=== PATIENT | male | born 1950 | race Caucasian/White ===

== ENCOUNTER 2023-03-23 08:00 | Outpatient (CLI) | payer OTHER, SELFPAY ==
--- NOTE | 2023-03-23 08:10 | US_ITS ---
WS: [id number] RIGHT UPPER QUADRANT ULTRASOUND HISTORY: RUQ ELEVATED LIVER ENZYMES COMPARISON: None available. Liver: 15.3 cm in length. Normal size liver and echogenicity. No bile duct dilatation or mass. Portal Vein: Normal hepatopetal flow with monophasic waveform. Gallbladder: Normally distended gallbladder with no stones or wall thickening. CBD: 0.4 cm Pancreas: Normal size and echogenicity. Right kidney: 11.3 cm in length. Normal size and echogenicity. No hydronephrosis or mass. Aorta and IVC: Unremarkable abdominal aorta and IVC. Small RIGHT pleural effusion is noted at the RIGHT lung base. IMPRESSION: 1. Negative RIGHT upper quadrant ultrasound. 2. Small RIGHT pleural effusion.
== END 2023-03-23 08:01 | disposition home or self-care (01) ==
PROVIDERS: PCP Nurse Practitioner; Visit Provider Nurse Practitioner
DX: R94.5 Abnormal results of liver function studies (principal); J90 Pleural effusion, not elsewhere classified
CPT/HCPCS: 76705

== ENCOUNTER → 2023-09-01 09:21 | Outpatient (BNVA) | payer OTHER, SELFPAY | PROVIDERS: PCP Nurse Practitioner; Visit Provider Podiatrist Foot & Ankle Surgery | DX: E11.621 Type 2 diabetes mellitus with foot ulcer; G62.9 Polyneuropathy, unspecified; L97.512 Non-pressure chronic ulcer of other part of right foot with fat layer exposed; E11.42 Type 2 diabetes mellitus with diabetic polyneuropathy | CPT/HCPCS: 99203 ==

== ENCOUNTER → 2023-09-07 09:03 | Outpatient (BNVA) | payer OTHER, SELFPAY | PROVIDERS: PCP Nurse Practitioner; Visit Provider Podiatrist Foot & Ankle Surgery | DX: L97.512 Non-pressure chronic ulcer of other part of right foot with fat layer exposed (principal); G62.9 Polyneuropathy, unspecified; E11.621 Type 2 diabetes mellitus with foot ulcer; L97.522 Non-pressure chronic ulcer of other part of left foot with fat layer exposed | CPT/HCPCS: 11042 ==

== ENCOUNTER 2023-09-15 11:05 | Outpatient (CLI) | payer OTHER, SELFPAY ==
--- NOTE | 2023-09-15 11:00 | MR_ITS ---
WS: [id number] EXAMINATION: MR foot RT wo/w con [id number] ORDER DATE: 09/15/2023 11:10 AM COMPARISON: None. HISTORY: Right foot wound CONTRAST: None. TECHNIQUE: Sagittal T1, sagittal STIR, coronal PD, coronal T2, axial T1, axial T2, and axial PD imagi ng with fat saturation technique. Post gadolinium imaging includes axial T1, coronal T1, and sagittal T1 with fat saturation technique. FINDINGS: Diffuse soft tissue edema dorsal midfoot at subcutaneous soft tissues. No evidence of drainable absce ss or fluid collection. Plantar soft tissue thickening overlying the first MTP joint in the area of i nterest. Associated subcutaneous soft tissue edema in this area. No evidence of underlying drainable abscess or fluid collection. Small joint effusion in the first MTP. No evidence of osteomyelitis. Metatarsals are otherwise otherwise normal in appearance. Small amount of fluid and edema about the f ifth proximal phalanx with a small amount of bone marrow edema and enhancement. Recommend correlation for trauma or fracture in this area. This may be inflammatory or reactive. IMPRESSION: 1. No evidence of drainable abscess or fluid collection. 2. No evidence of osteomyelitis. 3. No soft tissue thickening along the plantar fat pad at the first MTP. Small amount of fluid in th e first MTP joint. 4. Diffuse soft tissue edema worse in the dorsal midfoot soft tissues. 5. Small amount of fluid and edema about the fifth proximal phalanx with a small amount of bone john ow edema and enhancement. Recommend correlation for trauma or fracture in this area. 6. No other suspicious findings.
[2023-09-15] MEDS: gadobenate dimeglumine 20 mL vial IV (11:36)
== END 2023-09-15 11:06 | disposition home or self-care (01) ==
LOC: RAD 11:05
PROVIDERS: PCP Nurse Practitioner; Visit Provider Podiatrist Foot & Ankle Surgery
DX: L97.512 Non-pressure chronic ulcer of other part of right foot with fat layer exposed (principal); R93.6 Abnormal findings on diagnostic imaging of limbs; E11.52 Type 2 diabetes mellitus with diabetic peripheral angiopathy with gangrene; E11.621 Type 2 diabetes mellitus with foot ulcer; L97.521 Non-pressure chronic ulcer of other part of left foot limited to breakdown of skin; L97.511 Non-pressure chronic ulcer of other part of right foot limited to breakdown of skin
CPT/HCPCS: 73720; 97597; 99213; A9577

== ENCOUNTER → 2023-09-22 12:54 | Outpatient (BNVA) | payer OTHER, SELFPAY | PROVIDERS: PCP Nurse Practitioner; Visit Provider Thoracic Surgery (Cardiothoracic Vascular Surgery) | DX: Z09 Encounter for follow-up examination after completed treatment for conditions other than malignant neoplasm (principal); L84 Corns and callosities | CPT/HCPCS: 11056; A6212 ==

== ENCOUNTER → 2023-10-19 09:38 | Outpatient (BNVA) | payer OTHER, SELFPAY | PROVIDERS: PCP Nurse Practitioner; Referring Provider Nurse Practitioner; Visit Provider Internal Medicine | DX: E78.2 Mixed hyperlipidemia; E11.42 Type 2 diabetes mellitus with diabetic polyneuropathy; E11.319 Type 2 diabetes mellitus with unspecified diabetic retinopathy without macular edema; I73.9 Peripheral vascular disease, unspecified; Z79.4 Long term (current) use of insulin | CPT/HCPCS: 99204 ==

== ENCOUNTER → 2023-10-26 14:05 | Outpatient (BNVA) | payer OTHER, SELFPAY | PROVIDERS: PCP Nurse Practitioner; Visit Provider Thoracic Surgery (Cardiothoracic Vascular Surgery) | DX: S90.425A Blister (nonthermal), left lesser toe(s), initial encounter (principal); S90.424A Blister (nonthermal), right lesser toe(s), initial encounter; X58.XXXA Exposure to other specified factors, initial encounter | CPT/HCPCS: 11042; 87070; 87077; 87176; 87186; 87205 ==

== ENCOUNTER → 2023-11-02 14:05 | Outpatient (BNVA) | payer OTHER, SELFPAY | PROVIDERS: PCP Nurse Practitioner; Visit Provider Thoracic Surgery (Cardiothoracic Vascular Surgery) | DX: E11.52 Type 2 diabetes mellitus with diabetic peripheral angiopathy with gangrene (principal); E11.621 Type 2 diabetes mellitus with foot ulcer; L97.521 Non-pressure chronic ulcer of other part of left foot limited to breakdown of skin; L97.511 Non-pressure chronic ulcer of other part of right foot limited to breakdown of skin | CPT/HCPCS: 11042; 97597 ==

== ENCOUNTER 2023-12-23 15:33 | Emergency (ER) | payer OTHER, MEDICARE, SELFPAY ==
[2023-12-23 15:42] VITALS: BP 148/88; PULSE 103; RESP 16; TEMP 36.6; O2SAT 95; BMI 23.5
--- NOTE | 2023-12-23 16:11 | W.ED.WOUNDLC ---
HPI - Wound/Laceration General: Chief Complaint: Wound/Laceration Stated Complaint: foot pains Time Seen by Provider: 12/23/23 16:10 History of Present Illness: 73-year-old male patient was referred from [facility] for concerns of foot ulcer. Patient has a dry lesion to the ball of the right foot that has had some increased pain and discomfort. Patient denies any fever or chills. Patient does have chronic ulcers to the both feet. Patient had recent hip replacement for the right hip from a fall and fracture. Patient appears nontoxic. Patient denies any chest pain or shortness of breath. Patient is scheduled to see the wound clinic on Wednesday. Review of Systems General: Reports: 10 or more systems reviewed and unremarkable except in HPI and below Skin/Breast: Reports: changing lesions Physical Exam Const: COMMON NORMALS: alert HENMT: COMMON NORMALS: normocephalic HEAD & SCALP: normocephalic Neck/C-Spine: COMMON NORMALS: full ROM Resp: COMMON NORMALS: normal respiratory effort and clear to auscultation bilaterally AUSCULTATION: clear to auscultation bilaterally Cardio: COMMON NORMALS: regular rate RATE: regular rate GI: COMMON NORMALS: Soft to palpation and non-tender PALPATION: Yes Soft to palpation Back/Pelvis: COMMON NORMALS: thoracic and lumbar spine normal to inspection Extremity: NARRATIVE EXTREMITY EXAM: Strong pedal pulse to the right foot. Crusted callused lesion to the ball of the foot approximately 3-1/2 cm circular Neuro: SENSORIUM/ORIENTATION: Yes alert Skin: NARRATIVE SKIN EXAM: Tender lesion to the ball of right foot with his large callus area Course Vital Signs: Vital signs: Vital Signs Temperature 97.9 F 12/23/23 15:42 Pulse Rate 103 H 12/23/23 15:42 Respiratory Rate 16 12/23/23 16:31 Blood Pressure 116/86 12/23/23 16:31 Pulse Oximetry 94 12/23/23 16:31 Oxygen Delivery Me thod Room Air 12/23/23 16:31 MDM - Wound/Laceration Medical Decision Making 73-year-old male patient comes in with a wound to the ball of the right foot. On exam patient has good strong pedal pulses. No significant swelling to the foot. Patient does have a dry callused lesion to the ball of the foot with some tenderness ulcer appears to be limited to the skin.. Differential diagnosis includes diabetic foot ulcer, wound infection, osteomyelitis. Patient has had debridement of the callus and ulceration. Recommend follow-up with wound care. Patient has an appointment on Wednesday. Will start patient on Levaquin 500 mg daily. Patient was given a dose in the ER. Laboratory values were unremarkable except for alkaline phosphatase of 400 which is most likely secondary to patient's recent hip replacement surgery. X-ray showed no bony involvement. Patient and family both reported understanding. Lab Data 12/23/23 16:29 12/23/23 16: Laboratory Results WBC 6.72 10^3/uL (3.29-11.43) 12/23/23 16: RBC 3.80 10^6/uL (3.85-5.65) L 12/23/23 16: Hgb 12.90 g/dL (11.27-16.99) 12/23/23 16: Hct 39.4 % (37-53) 12/23/23 16: MCV 103.7 fl (82-101) H 12/23/23 16: MCH 33.9 pg (27-33) H 12/23/23 16: MCHC 32.7 g/dL (30-55) 12/23/23 16: RDW 15.8 % (12.1-15.1) H 12/23/23 16: Plt Count 195 10^3/cmm (157-399) 12/23/23 16: MPV 8.5 fL (7.4-10.4) 12/23/23 16: Neut % (Auto) 74.2 % 12/23/23 16: Lymph % (Auto) 13.8 % 12/23/23 16: Long % (Auto) 10.3 % 12/23/23 16: Eos % (Auto) 0.9 % 12/23/23 16: Baso % (Auto) 0.7 % 12/23/23: Neut # (Auto) 4.98 10^3/uL (1.8-7.7) 12/23/23 16: Lymph # (Auto) 0.9 10^3/uL (0.8-4.8) 12/23/23 16: Long # (Auto) 0.7 10^3/uL (0.2-0.9) 12/23/23 16:29 Eos # (Auto) 0.1 10^3/uL (0.0-0.8) 12/23/23 16: Baso # (Auto) 0.1 10^3/uL (0.0-0.1) 12/23/23 16:29 Nucleated RBC % (auto) 0 % 12/23/23 16: Nucleated RBCs # 0.0 /100WBC 12/23/23 16:29 Sodium 137 mmol/L (136-145) 12/23/23 16:29 Potassium 4.1 mmol/L (3.5-5.1) 12/23/23 16:29 Chloride 99 mmol/L (98-107) 12/23/23 16: Carbon Dioxide 28 mmol/L (22-29) 12/23/23 16: Anion Gap 14.1 (5-19) 12/23/23 16: BUN 20 mg/dL (8-23) 12/23/23 16:29 Creatinine 0.9 mg/dL (0.7-1.2) 12/23/23 16:29 GFR Calculation Not Reportable 12/23/23 16:29 Glucose 69 mg/dL (65-115) 12/23/23 16:29 Calculated Osmolality 285 mOsm/kg (285-295) 12/23/23 16: Lactic Acid 0.9 mmol/L (0.5-2.2) 12/23/23 16: Calcium 9.0 mg/dL (8.5-10.5) 12/23/23 16:29 Total Bilirubin 1.2 mg/dL (0.15-1.2) 12/23/23 16:29 AST 16 U/L (0-40) 12/23/23 16:29 ALT 17 U/L (0-41) 12/23/23 16:29 Alkaline Phosphatase 400 U/L (40-130) H 12/23/23 16:29 C-Reactive Protein 14.6 mg/L (0.0-4.9) H 12/23/23 16:29 Total Protein 7.3 g/dL (6.6-8.7) 12/23/23 16: Albumin 4.0 g/dL (3.5-5.2) 12/23/23 16:29 Globulin 3.3 g/dL (1.3-4.6) 12/23/23 16:29 All radiology interpretation(s) finalized by discharge Discharge Plan Discharge Patient Disposition: Home Clinical Impression: Diabetic foot ulcer Qualifiers: Diabetic foot ulcer location: midfoot Diabetes mellitus type: type 2 Laterality: right Non-pressure ulcer stage: limited to breakdown of skin Qualified Code(s): E11.621 - Type 2 diabetes mellitus with foot ulcer Condition: Stable Prescriptions: New levofloxacin 500 mg tablet 500 mg PO DAILY 7 Days Qty: 7 0RF No Action sulfamethoxazole-trimethoprim [Bactrim DS] 800-160 mg tablet 1 tab PO BID Qty: 14 0RF (DME) diabetic shoes with 3 inserts See Rx Instructions .Route .MEDSUPPLY Qty: 1 0RF Rx Instructions: As directed to the shoe guys (DME) FreeStyle Kalyani 2 [place] Misc See Rx Instructions .Route Qty: 1 0RF Rx Instructions: As directed (DME) FreeStyle Kalyani 2 Sensor Kit See Rx Instructions .Route Qty: 2 2RF Rx Instructions: As directed Discharge Orders: Discharge ED (Routine); Ordered 12/23/23 Ordered By: Thor Ennis Referrals: Preethi Jacques, STORE LEADER [Primary Care Provider] - Discharge Diet: Usual diet Discharge Activity: Increase activity as tolerated Patient Instructions: Foot Care for People with Diabetes (ED), Foot Ulcers in a Person with Diabetes (ED) Activity Restrictions/Additional Instructions: Take antibiotic as prescribed. Follow-up with wound care on Wednesday at appointment. Elevate foot is much as possible. Return to ER for new concerns or worsening symptoms such as high fever, nausea or vomiting. Coding Level of Care Code ED Pre Sales Network Engineer for Julia Barrow
--- NOTE | 2023-12-23 16:15 | XRR_ITS ---
PROCEDURE INFORMATION: Exam: XR Right Foot Exam date and time: 12/23/2023 4:19 PM Age: 73 years old Clinical indication: Condition or disease; Other: Foot ulcer; Patient HX: Diabetic ulcer on RT foot, pain on ball of foot TECHNIQUE: Imaging protocol: Radiologic exam of the right foot. Views: 3 or more views. COMPARISON: MR foot RT wo/w con [id number] 09/15/2023 11:16 AM FINDINGS: Bones/joints: Scattered osteoarthritis of the visualized osseous structures. Achilles tendon enthesophyte. Os peroneus. Soft tissues: Diffuse soft tissue reticulation, [id number]. Other findings: Plantar cutaneous defect appreciated on the lateral projection. XR/XR foot RT min 3V* [id number] IMPRESSION: 1. Plantar ulcer with diffuse soft tissue reticulation, which may be seen in diffuse cellulitis. Correlate clinically. 2. No aggressive osseous findings to suggest osteomyelitis.
[2023-12-23 16:31] VITALS: BP 116/86; RESP 16; O2SAT 94
[2023-12-23 16:43] LABS: Basophils # 0.1 10^3/uL (0.0-0.1); Basophils % 0.7 %; Eosinophils # 0.1 10^3/uL (0.0-0.8); Eosinophils % 0.9 %; Hematocrit 39.4 % (37-53); Lymphocytes # 0.9 10^3/uL (0.8-4.8); Lymphocytes % 13.8 %; Mean Corpuscular HGB Conc 32.7 g/dL (30-55); Mean Corpuscular Hemoglobin 33.9 pg (27-33); Mean Corpuscular Volume 103.7 fl (82-101); Mean Platelet Volume 8.5 fL (7.4-10.4); Monocytes # 0.7 10^3/uL (0.2-0.9); Monocytes % 10.3 %; Neutrophils # 4.98 10^3/uL (1.8-7.7); Neutrophils % 74.2 %; Nucleated Red Blood Cells % 0 %; Platelet Count 195 10^3/cmm (157-399); Red Cell Distribution Width 15.8 % (12.1-15.1); White Blood Count 6.72 10^3/uL (3.29-11.43)
[2023-12-23 17:05] LABS: Lactic Sepsis W/Reflex 0.9 mmol/L (0.5-2.2)
[2023-12-23 17:06] LABS: Alanine Aminotransferase 17 U/L (0-41); Alkaline Phosphatase 400 U/L (40-130); Anion Gap 14.1 (5-19); Aspartate Amino Transferase 16 U/L (0-40); Blood Urea Nitrogen 20 mg/dL (8-23); C Reactive Protein 14.6 mg/L (0.0-4.9); Carbon Dioxide 28 mmol/L (22-29); Chloride 99 mmol/L (98-107); Creatinine Clr Calc Pharmacy 88.7101; Globulin 3.3 g/dL (1.3-4.6); Glucose 69 mg/dL (65-115); Osmolality Calculated 285 mOsm/kg (285-295); Potassium 4.1 mmol/L (3.5-5.1); Sodium 137 mmol/L (136-145); Total Bilirubin 1.2 mg/dL (0.15-1.2); Total Protein 7.3 g/dL (6.6-8.7)
[2023-12-23] MEDS: levofloxacin-dextrose 5 % 500 MG/100 ML PREMIX 100 MG IV (17:33)
--- NOTE | 2023-12-23 17:50 | PC.NURSE ---
pt states he needs to leave, provider to bedside, pt aware that IV infusion would be best for him. 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
[2023-12-23] MEDS: levoFLOXacin 500 mg Tablet PO (17:55)
[2023-12-23 18:02] VITALS: BP 124/84; PULSE 97; RESP 16; O2SAT 95
== END 2023-12-23 18:03 | disposition home or self-care (01) ==
PROVIDERS: Emergency Provider Nurse Practitioner Family; PCP Nurse Practitioner
DX: E11.621 Type 2 diabetes mellitus with foot ulcer (principal)
CPT/HCPCS: 36415; 73630; 80053; 83605; 85025; 86140; 87040; 96365; 99284; J1956

== ENCOUNTER → 2023-12-27 08:17 | Outpatient (BNVA) | payer OTHER, SELFPAY | PROVIDERS: PCP Nurse Practitioner; Visit Provider Nurse Practitioner Family | DX: E11.621 Type 2 diabetes mellitus with foot ulcer (principal); L97.512 Non-pressure chronic ulcer of other part of right foot with fat layer exposed; E11.52 Type 2 diabetes mellitus with diabetic peripheral angiopathy with gangrene; L97.521 Non-pressure chronic ulcer of other part of left foot limited to breakdown of skin | CPT/HCPCS: 11042; 87070; 87176; 87205; 97597; A6210; A6252 ==

== ENCOUNTER → 2024-01-03 09:04 | Outpatient (BNVA) | payer OTHER, SELFPAY | PROVIDERS: PCP Nurse Practitioner; Visit Provider Nurse Practitioner Family | DX: Z09 Encounter for follow-up examination after completed treatment for conditions other than malignant neoplasm (principal); Z87.2 Personal history of diseases of the skin and subcutaneous tissue | CPT/HCPCS: 99212 ==

== ENCOUNTER → 2024-01-19 09:23 | Outpatient (BNVA) | payer OTHER, SELFPAY | PROVIDERS: PCP Nurse Practitioner; Visit Provider Nurse Practitioner | DX: S52.521A Torus fracture of lower end of right radius, initial encounter for closed fracture (principal); W19.XXXA Unspecified fall, initial encounter; S92.002A Unspecified fracture of left calcaneus, initial encounter for closed fracture; W11.XXXA Fall on and from ladder, initial encounter; E11.9 Type 2 diabetes mellitus without complications | CPT/HCPCS: 73130; 73630 ==

== ENCOUNTER 2024-02-08 10:00 | Outpatient (CLI) | payer OTHER, SELFPAY ==
--- NOTE | 2024-02-08 10:00 | USR_ITS ---
PROCEDURE INFORMATION: Exam: US Duplex Bilateral Lower Extremity Arteries Exam date and time: 02/08/2024 10:32 AM Age: 73 years old Clinical indication: Pain; Leg, lower; Left; Additional info: Non healing bilateral foot wounds TECHNIQUE: Imaging protocol: Real-time ultrasound scan of the arteries of the bilateral lower extremities with 2-D lafleur scale, color Doppler flow and spectral waveform analysis. Images documented and saved. COMPARISON: MR foot RT wo/w con [id number] 09/15/2023 11:16 AM FINDINGS: Right common femoral artery: No occlusion or significant stenosis. Normal waveform. Right superficial femoral artery: No occlusion or significant stenosis. Normal waveform. Right popliteal artery: No occlusion or significant stenosis. Normal waveform. Right calf/foot arteries: No occlusion or significant stenosis in the visualized arteries. Monophasic waveforms. Dorsalis pedis artery is patent. Left common femoral artery: No occlusion or significant stenosis. Normal waveform. Left superficial femoral artery: No occlusion or significant stenosis. Normal waveform. Left popliteal artery: No occlusion or significant stenosis. Normal waveform. Left calf/foot arteries: No occlusion or significant stenosis in the visualized arteries. Monophasic waveforms. Dorsalis pedis artery is patent. US/CV arterial duplex [facility] [id number] IMPRESSION: No stenosis or occlusion.
== END 2024-02-08 10:03 | disposition home or self-care (01) ==
PROVIDERS: PCP Nurse Practitioner; Visit Provider Nurse Practitioner Family
DX: E11.621 Type 2 diabetes mellitus with foot ulcer (principal); L97.411 Non-pressure chronic ulcer of right heel and midfoot limited to breakdown of skin; L97.512 Non-pressure chronic ulcer of other part of right foot with fat layer exposed
CPT/HCPCS: 93925

== ENCOUNTER → 2024-02-09 08:45 | Outpatient (BNVA) | payer OTHER, SELFPAY | PROVIDERS: PCP Nurse Practitioner; Visit Provider Internal Medicine | DX: E11.9 Type 2 diabetes mellitus without complications (principal); E78.2 Mixed hyperlipidemia; S52.521A Torus fracture of lower end of right radius, initial encounter for closed fracture; S92.002A Unspecified fracture of left calcaneus, initial encounter for closed fracture; W11.XXXA Fall on and from ladder, initial encounter; Z79.84 Long term (current) use of oral hypoglycemic drugs; Z79.4 Long term (current) use of insulin | CPT/HCPCS: 99214 ==

== ENCOUNTER → 2024-02-11 09:15 | Outpatient (BNVA) | payer OTHER, SELFPAY | PROVIDERS: PCP Nurse Practitioner; Visit Provider Podiatrist Foot & Ankle Surgery | DX: S92.002A Unspecified fracture of left calcaneus, initial encounter for closed fracture (principal); W11.XXXA Fall on and from ladder, initial encounter; E11.9 Type 2 diabetes mellitus without complications | CPT/HCPCS: 73610; 99213 ==

== ENCOUNTER → 2024-02-16 10:54 | Outpatient (BNVA) | payer OTHER, SELFPAY | PROVIDERS: PCP Nurse Practitioner; Visit Provider Nurse Practitioner | DX: S52.521D Torus fracture of lower end of right radius, subsequent encounter for fracture with routine healing (principal); X58.XXXD Exposure to other specified factors, subsequent encounter | CPT/HCPCS: 73110; 99024 ==

== ENCOUNTER → 2024-04-06 16:09 | Outpatient (BNVA) | payer OTHER, SELFPAY | PROVIDERS: PCP Nurse Practitioner; Visit Provider Podiatrist Foot & Ankle Surgery | DX: S92.002A Unspecified fracture of left calcaneus, initial encounter for closed fracture (principal); M79.672 Pain in left foot; E11.9 Type 2 diabetes mellitus without complications; W11.XXXA Fall on and from ladder, initial encounter | CPT/HCPCS: 73610; 99213 ==

== ENCOUNTER → 2024-04-07 09:52 | Outpatient (BNVA) | payer OTHER, SELFPAY | PROVIDERS: PCP Nurse Practitioner; Visit Provider Nurse Practitioner | DX: S52.512D Displaced fracture of left radial styloid process, subsequent encounter for closed fracture with routine healing (principal); X58.XXXD Exposure to other specified factors, subsequent encounter | CPT/HCPCS: 73110; 99213 ==

== ENCOUNTER 2024-05-02 08:20 | Outpatient (CLI) | payer OTHER, SELFPAY ==
--- NOTE | 2024-05-02 08:26 | US_ITS ---
WS: [id number] RIGHT UPPER QUADRANT ULTRASOUND HISTORY: ELEVATED LIVER ENZYMES COMPARISON: 03/23/2023 Liver: 16.8 cm in length. Normal size liver and echogenicity. No bile duct dilatation or mass. Portal Vein: Normal hepatopetal flow with monophasic waveform. Gallbladder: Normally distended gallbladder with no stones or wall thickening. CBD: 0.4 cm Pancreas: Pancreas appears atrophic and difficult to visualize in its entirety. Pancreatic duct is di lated to 4 mm. Right kidney: 10.9 cm in length. Normal size and echogenicity. No hydronephrosis or mass. Aorta and IVC: IVC appears prominent. Normal size aorta. Small RIGHT pleural effusion. No ascites. US/US abdomen limited [id number] IMPRESSION: 1. Negative gallbladder. 2. Dilated pancreatic duct to 4 mm. Otherwise the pancreas appears atrophied b ut limited evaluation. Recommend follow-up CT abdomen and pelvis with pancreati c mass protocol to exclude pancreatic mass. 3. Small RIGHT pleural effusion.
== END 2024-05-02 08:21 | disposition home or self-care (01) ==
LOC: RAD 08:20
PROVIDERS: PCP Nurse Practitioner; Visit Provider Nurse Practitioner
DX: K86.89 Other specified diseases of pancreas (principal); J90 Pleural effusion, not elsewhere classified
CPT/HCPCS: 76705

== ENCOUNTER → 2024-05-18 15:24 | Outpatient (BNVA) | payer OTHER, SELFPAY | PROVIDERS: PCP Nurse Practitioner; Visit Provider Podiatrist Foot & Ankle Surgery | DX: M79.672 Pain in left foot; E11.621 Type 2 diabetes mellitus with foot ulcer; L97.512 Non-pressure chronic ulcer of other part of right foot with fat layer exposed; S92.002D Unspecified fracture of left calcaneus, subsequent encounter for fracture with routine healing; X58.XXXD Exposure to other specified factors, subsequent encounter | CPT/HCPCS: 73610; 99213 ==

== ENCOUNTER 2024-06-20 07:57 | Outpatient (CLI) | payer OTHER, SELFPAY ==
--- NOTE | 2024-06-20 08:04 | CTR_ITS ---
PROCEDURE INFORMATION: Exam: CT Abdomen And Pelvis With Contrast Exam date and time: 06/20/2024 9:27 AM Age: 74 years old Clinical indication: Condition or disease; Pancreatic condition; Other: Atrophy; Patient HX: Follow up pancreas atrophied/pancreatic mass; Additional info: Pancreas appears atrophied/pancreatic mass TECHNIQUE: Imaging protocol: Computed tomography of the abdomen and pelvis with contrast. Radiation optimization: All CT scans at this facility use at least one of these dose optimization techniques: automated exposure control; mA and/or kV adjustment per patient size (includes targeted exams where dose is matched to clinical indication); or iterative reconstruction. Contrast material: OMNI 350; Contrast volume: 100 ml; Contrast route: INTRAVENOUS (IV); COMPARISON: abdomen limited [id number] 05/02/2024 8:35 AM RADIATION DOSE METRICS: Total DLP (mGy-cm): 897.83 FINDINGS: Pleural spaces: Moderate right-sided pleural effusion with overlying compressive atelectasis. Mild left basilar atelectasis. Liver: Heterogeneous mottled appearance of the liver . The liver capsule appears mildly nodular. Diffuse hypoattenuation of the liver. Mild periportal edema. Gallbladder and biliary ducts: The gallbladder is underdistended limiting evaluation otherwise unremarkable. Pancreas: Atrophic pancreas without discernible evidence of pancreatic lesion Spleen: Normal. No splenomegaly. Adrenal glands: Normal. No mass. Kidneys and ureters: Normal. No hydronephrosis. Stomach and bowel: Moderately increased colonic stool burden. Scattered fluid-filled loops of small bowel that are non pathologically dilated. Appendix: The appendix is partially air and contrast filled and unremarkable. Intraperitoneal space: Unremarkable. No free air. No significant fluid collection. Vasculature: The hepatic veins are not well opacified on this examination likely related to contrast phase timing. Lymph nodes: Unremarkable. No enlarged lymph nodes. Urinary bladder: Unremarkable as visualized. Reproductive: Unremarkable as visualized. Bones/joints: Moderate multilevel degenerative changes of the thoracolumbar spine. Soft tissues: Screw and bria fixation in the proximal right femoral head and neck. CT/CT abdomen pelvis w con* [id number] IMPRESSION: 1. Heterogeneous mottled appearance of the liver on venous phase imaging with non-opacification of the hepatic veins which is likely related to contrast phase timing. Differential diagnosis includes findings related to Budd-Chiari syndrome versus nonspecific perfusional changes of the liver. Further evaluation with MRI liver mass protocol can be obtained as clinically indicated. 2. There is a mildly nodular contour of the liver with diffuse hypoattenuation suggesting hepatic steatosis and/or diffuse hepatocellular disease such as cirrhosis or steatohepatitis. Recommend clinical and laboratory correlation. 3. Mild constipation. 4. Scattered fluid-filled loops of small bowel that are non pathologically dilated may represent nonspecific enteritis. 5. Moderate right-sided pleural effusion with overlying compressive atelectasis. 6. Nonspecific atrophic appearance of the pancreas without discernible pancreatic mass lesion.
[2024-06-20] MEDS: iohexol 350 mg/mL 500 mL Btl (per mL) PO (09:18)
[2024-06-20 09:28] LABS: Blood Urea Nitrogen 21 mg/dL (8-23)
[2024-06-20] MEDS: iohexol 350 mg/mL 500 mL Btl (per mL) IV (09:35)
== END 2024-06-20 07:58 | disposition home or self-care (01) ==
LOC: RAD 07:58
PROVIDERS: PCP Nurse Practitioner; Visit Provider Nurse Practitioner
DX: R93.2 Abnormal findings on diagnostic imaging of liver and biliary tract (principal); J90 Pleural effusion, not elsewhere classified; J98.11 Atelectasis; K86.89 Other specified diseases of pancreas; K59.00 Constipation, unspecified; M51.35 Other intervertebral disc degeneration, thoracolumbar region
CPT/HCPCS: 74177; 82565; 84520

== ENCOUNTER → 2024-06-22 14:31 | Outpatient (BNVA) | payer OTHER, SELFPAY | PROVIDERS: PCP Nurse Practitioner; Visit Provider Podiatrist Foot & Ankle Surgery | DX: S92.002A Unspecified fracture of left calcaneus, initial encounter for closed fracture; E11.9 Type 2 diabetes mellitus without complications; X58.XXXA Exposure to other specified factors, initial encounter | CPT/HCPCS: 99213 ==

== ENCOUNTER → 2024-08-03 13:43 | Outpatient (BNVA) | payer OTHER, SELFPAY | PROVIDERS: PCP Nurse Practitioner; Referring Provider Nurse Practitioner; Visit Provider Specialist | DX: R20.0 Anesthesia of skin (principal); G62.89 Other specified polyneuropathies | CPT/HCPCS: 95910 ==

== ENCOUNTER 2024-08-14 13:22 | Outpatient (CLI) | payer OTHER, SELFPAY ==
--- NOTE | 2024-08-14 13:25 | MR_ITS ---
WS: [id number] MRI ABDOMEN WITH AND WITHOUT CONTRAST. COMPARISON: CT 06/20/2024 Multiplanar, multisequence imaging is performed with and without contrast. MultiHance 18 mL. Normal size liver. 6 x 7 mm T2 hyperintense mass in the LEFT lobe does not enhance. There is an additional linear 7.7 mm area of enhancement on the arterial phase in the central liver which may be a hemangioma. On the following postcontrast sequences no mass identified. The remaining liver although mildly heterogeneous demonstrates no additional masses. The hepatic vein and IVC are appropriate. Normal enhancement of the portal vein. No thrombus in the portal vein. Gallbladder is normal. No pancreatic abnormality. No adrenal mass. Normal size spleen. Mild perinephric stranding around each kidney but there is no obstruction. Incidentally noted is a small RIGHT pleural effusion which was previously described on the prior CT. Visualized GI tract is negative. No obstruction. No ascites. No adenopathy. MR/MR abdomen wo/w con* [id number] IMPRESSION: 1. No diffuse hepatic neoplastic process. 2. Simple cyst LEFT hepatic lobe. 3. Probable 7.7 mm hemangioma in the central liver. 4. Normal portal vein. 5. Normal hepatic vein. 6. Small RIGHT pleural effusion. 7. No ascites or adenopathy.
[2024-08-14] MEDS: gadobenate dimeglumine 20 mL vial IV (14:04)
== END 2024-08-14 13:23 | disposition home or self-care (01) ==
PROVIDERS: PCP Nurse Practitioner; Visit Provider Nurse Practitioner
DX: Z01.89 Encounter for other specified special examinations (principal); K76.89 Other specified diseases of liver; R93.2 Abnormal findings on diagnostic imaging of liver and biliary tract; J90 Pleural effusion, not elsewhere classified; R93.421 Abnormal radiologic findings on diagnostic imaging of right kidney; R93.422 Abnormal radiologic findings on diagnostic imaging of left kidney
CPT/HCPCS: 74183

== ENCOUNTER 2024-08-28 10:27 | Outpatient (CLI) | payer OTHER, SELFPAY ==
--- NOTE | 2024-08-28 10:31 | USCV_ITS ---
Ken Caleb Age: 74 Gender: M : 1950 Exam Date: 08/28/2024 10:39 Ordering Phys: Preethi Jacques Technologist: MAYRA [place] [facility] [place] HISTORY: Diameter (cm) AP x Transverse x Length Velocity (cm/s) Waveform Prox Aorta: 2.40 x 2.20 x 65.30 Mid Aorta: 1.60 x 1.90 x 136.80 Distal Aorta: 1.60 x 1.80 x 111.10 Right Iliac Prox: 1.02 x 0.92 x 132.00 Left Iliac Prox: 0.99 x 0.82 x 114.60 Stent Prox Landing x x Aneurysmal Sac Max x x Lt Lat Sac Dim Rt Lat Sac Dim Stent Dist Landing x x Right Iliac Stent x x Left Iliac Stent x x Right Renal Art Left Renal Art FINDINGS: CONCLUSIONS No evidence of abdominal aortic or bilateral iliac aneurysm. Stevan Pryor MD (Electronically Signed) Final Date: 28 August 2024 11:33 S
== END 2024-08-28 10:28 | disposition home or self-care (01) ==
PROVIDERS: PCP Nurse Practitioner; Visit Provider Nurse Practitioner
DX: Z01.89 Encounter for other specified special examinations (principal)
CPT/HCPCS: 76706

== ENCOUNTER → 2024-09-25 10:29 | Outpatient (BNVA) | payer OTHER, SELFPAY | PROVIDERS: PCP Nurse Practitioner; Referring Provider Nurse Practitioner; Visit Provider Nurse Practitioner | DX: G62.89 Other specified polyneuropathies (principal) | CPT/HCPCS: 99214 ==

== ENCOUNTER → 2024-10-16 08:02 | Outpatient (BNVA) | payer OTHER, SELFPAY | PROVIDERS: PCP Nurse Practitioner; Visit Provider Orthopaedic Surgery | DX: G56.03 Carpal tunnel syndrome, bilateral upper limbs (principal); G56.23 Lesion of ulnar nerve, bilateral upper limbs | CPT/HCPCS: 99214 ==

== ENCOUNTER → 2025-02-07 11:30 | Outpatient (BNVA) | payer OTHER, SELFPAY | PROVIDERS: PCP Nurse Practitioner; Visit Provider Podiatrist Foot & Ankle Surgery | DX: E11.42 Type 2 diabetes mellitus with diabetic polyneuropathy (principal); L60.3 Nail dystrophy; E11.621 Type 2 diabetes mellitus with foot ulcer; L97.512 Non-pressure chronic ulcer of other part of right foot with fat layer exposed; G62.9 Polyneuropathy, unspecified | CPT/HCPCS: 11042; 11721; 99213 ==

== ENCOUNTER → 2025-02-21 10:32 | Outpatient (BNVA) | payer OTHER, SELFPAY | PROVIDERS: PCP Nurse Practitioner; Visit Provider Internal Medicine | DX: E11.9 Type 2 diabetes mellitus without complications (principal); E78.2 Mixed hyperlipidemia | CPT/HCPCS: 99214 ==

== ENCOUNTER 2025-04-19 12:27 | Inpatient (IN) | payer OTHER, SELFPAY ==
--- OUTSIDE RECORDS SUMMARY | 2023-11-04 08:10 | XMS_ITS ---
Author Organization [facility] Address [address] [place] [address] Care Team Providers Care Photographer Name Role Phone Preethi Wang Primary Care Provid er Unavailable Zac Chiu Unavailable [phone] [facility], [facility] Unava ilable Unavailable Page Costa Unavailable [phone] Encounters Encounter Location Date Provider Diagnosis [facility] [address] [place] [address] [place] [address] 11/04/2023 Page Costa Plan Of Treatment Next Appt Details Provider Name:Zac Chiu, 02/20/2026 01:10:00 PM, [address] [place] [address] DR [address]SON [address] [place] [address], [place], [phone], Progress Notes * KENCalebDOB:1950 (75 yo M)Acc No.[id number]:11/04/2023 Progress Notes Patient: Caleb Nicole Provider: Julius Costa MD :1950 A ge:73 Y S ex:Male Date:11/04/2023 Address:[address] [id number] Pcp:Preethi MCKEON, [facility] * Electronic signature of Page Costa MD on 04/19/2025 at 01:07 PM CDT Sign off status: Pending * Provider: Julius Costa MD Date: 0 11/04/2023 Generated for Printi ng/Faxing/eTransmitting on: 1 01:07 PM CDT
--- OUTSIDE RECORDS SUMMARY | 2023-11-16 08:40 | XMS_ITS ---
Author Organization [facility] Address [address] [place] [address] Care Team Providers Care Corrections Lieutenant Name Role Phone Preethi Wang Primary Care Provid er Unavailable Zac Chiu Unavailable [phone] [facility], [facility] Unava ilable Unavailable REASON FOR VISIT [phone] Encounters Encounter Location Date Provider Diagnosis [facility] [address] [place] [address] [place] [address] 11/16/2023 Zac Chiu Plan Of Treatment Next Appt Details Provider Name:Zac Chiu, 02/20/2026 01:10:00 PM, [address] [place] [address] [address], [place], [phone], Progress Notes * Caleb TOMLINDOB:1950 (75 yo M)Acc No.[id number]:11/16/2023 Progress Notes Patient: Caleb Nicole Provider: Beth Chiu MD :1950 A ge:73 Y S ex:Male Date:11/16/2023 Address:[address] [id number] Pcp:Preethi MCKEON, [employer] BC Subjective: * Chief Complaints: * [phone] [id number] Care Plan Details* * Electronic signature of Jessica Chiu MD on 04/19/2025 at 01:08 PM CDT Sign off status: Pending * Provider: Beth Chiu MD Date: 0 11/16/2023 Generated for Pricila trinh/Shukri/eTransmitting on: 1 01:08 PM CDT
[2025-04-19] VITALS (12 sets, daily range): BP systolic 123–171; BP diastolic 86–116; PULSE 80–98; RESP 14–22; TEMP 36.2–37; O2SAT 92–100; BMI 19.0
--- OUTSIDE RECORDS SUMMARY | 2025-04-19 13:08 | XMS_ITS | Encounter Summary ---
Author Organization [facility] Address 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
--- OUTSIDE RECORDS SUMMARY | 2025-04-19 13:08 | XMS_ITS | Patient Health Record ---
Author Organization [facility] Address [address] [place] [address] Care Team Providers Care Jute Bag Clipper Name Role Phone [facility] Preethi SALCEDO Primary Care Provid er Unavailable Zac Chiu Unavailable [phone] [facility], [facility] Care Unava ilable Unavailable Allergies No Known Allergies Results Component Value Reference Range Notes Abdomen Acute Series-[id number] Reviewed date:05/09/2024 06:28:49 AM Interpretation: Performing Lab: Notes/Report: See Below For Report Abdomen Acute Series Read See Below For Report zzzCT Outside CD Reviewed date:02/08/2025 11:46:02 AM Interpretation: Performing Lab: Notes/Report: [id number] XR Outside CD Reviewed date:02/08/2025 11:46:02 AM Interpretation: Performing Lab: Notes/Report: [id number]=iSite XR Outside CD Reviewed date:02/08/2025 11:46:02 AM Interpretation: Performing Lab: Notes/Report: [id number] Reason For Referral Reason Pulm Nodule and pleu ral effusion: [facility]: 1 wk per Apple Chiu Pt 2023 08/04: Received Disc Scheduled 02/12/2025 @ 1 PM Diagnosis 1 Stage 2 moderate EXPERIMENTAL ELECTRONICS DEVELOPER D by GOLD classification (J44.9) Diagnosis 2 Pulmonary nodule (R9 1.1) Referring Provider First Name [place] Lonnie ff Referring Provider Last Name [place] Referring Provider [facility] Referred Organization [facility] Referred Provider Zac Chiu Referred Address [address],[place], [place],[address],[place] Referred Provider Specialty Pulmonary Di seas General Notes Lia Lucia 01/31 08:46:16 AM CDT > 01/31: [facility] just [facility] and I will request the disc of the LDCT and the past 2 xrays to be sent to you., Lia Lucia 02/05/2025 11:27:09 AM CDT > Scheduled 02/12/2025 @ 1 PM Referral Priority Routine Medications Medication SIG (Take, Route, Frequency, Duration) Notes Start Date End Date Status Lisinopril 10 MG Tablet 1 tablet Orally Once a day Active Melatonin 5 MG Tablet 1 tablet in the ev ening Orally Once a day Active Fluticasone-Salmeterol 250-50 MCG/ACT Aerosol Powder Breath Activated 1 puff Inhalation Twice a day Active Furosemide 20 MG Tablet 1 tablet Orally Once a day Active HYDROcodone-Acetaminophen 7.5-325 MG Tablet 1 tablet as needed Orally every 6 hrs Active Insulin Glargine-yfgn 100 UNIT/ML Solution Pen-injector as directed Subcutaneous Act mabel Albuterol Sulfate HFA 108 (90 Base) MCG/ACT Aerosol Solution 1 puff as needed Inhalation every 4 hrs Active rOPINIRole HCl 1 MG Tablet 1 tablet 1 to 3 hours before bedtime Orally Once a day Active Apixaban 5 MG Tablet 1 tablet Orally Twi ce a day Active Tiotropium [place] Monohydrate 2.5 MCG/ACT Aerosol Solution 2 puffs Inhalation Once a day Active Ferrous Sulfate 325 (65 Fe) MG Tablet 1 tablet Orally Three times a Week Active Fluticasone Propionate 50 MCG/ACT Suspension 1 spray in each nostril Nasally Once a day Active NovoLOG 100 UNIT/ML Solution as directed Injection 3 times a day with meals Active Immunizations Vaccine Route Administration Date Status Comme nts COVID-19 Vaccine (Moderna) Dose #2 Unknown 09/03/2020 A dministered COVID-19 Vaccine (Moderna) Dose #2 Unknown 10/01/2020 A dministered COVID-19 Vaccine (Moderna) Dose #2 Unknown 06/12/2021 A dministered FLUAD Unknown 06/10/2023 Administered Influenza, high dose seasonal Unknown 05/11/2024 Admini stered Pneumococcal conjugate PCV 13 Unknown 07/26/2015 Admini stered Pneumococcal polysaccharide PPV23 Unknown 08/24/2017 Ad ministered Prevnar 20 Unknown 05/11/2024 Administered Shingrix Unknown 10/28/2017 Administered Shingrix Unknown 12/31/2017 Administered Tdap Unknown 10/30/2014 Administered Social History Tobacco Use: Social History Observation Description Date Details (start date - stop date) Current Smoker NA - NA Social History Tobacco Use: Social Info Question Answer Notes Tobacco Control (Standard) Tobacco use: Current smoker How many cigarettes a day do you smoke? 6-10 xTobacco Use/Smoking Are you a current smoker How many cigarettes a day do you smoke? 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.51) Active confirmed Problem Tobacco user (829425633) Cigarette nicotine dependence without complication (F17.210) Active confirmed Problem Congestive heart failure (60121708) CHF (congestive heart failure) (I50.9) Active confirmed Problem Chronic obstructive pulmonary disease (84635727) Stage 2 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 (J44.9) Active confirmed Vital Signs Heart Rate 81 /min 02/12/2025 Temperature 97.1 degrees Fahrenheit 02/12/2025 Height-cm 193.04 cm 02/12/2025 Oximetry 99 % 02/12/2025 Blood pressure diastolic 88 mm Hg 02/12/2025 Weight-kg 79.9 kg 02/12/2025 Height 76 in 02/12/2025 Blood pressure systolic 135 mm Hg 02/12/2025 Weight 176.15 lbs 02/12/2025 BMI 21.44 kg/m2 02/12/2025 Encounters Encounter Location Date Provider Diagnosis [facility] [address] [place] [address] 02/12/2025 Zac Chiu Stage 2 moderate EXPERIMENTAL ELECTRONICS DEVELOPER D by GOLD classification J44.9 ; Solitary pulmonary nodule R91.1 ; Cigarette nicotine dependence without complication F17.210 ; Tobacco abuse counseling Z71.6 and 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 Obtain chest CT in one year. 02/12/2025 Stage 2 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 (ICD-10 - J44.9) Continue Advair and Spiriva. Continue Albuterol HFA as needed. 02/12/2025 Cigarette nicotine dependence without complication (ICD-10 - F17.210) 76-rzws-bctm smoker still smoking 8 cigarettes a day for smoking cessation emphasized. 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 Zac Chiu. I, Dr. Zac Chiu, personally performed the services described in this documentation, as scribed by Юлия Ontiveros in my presence, and it is both accurate and complete. Plan Of Treatment Pending Test Test Name Order Date CT Lung Cancer Screening Low Dose-[id number] 11/04/2023 Future Test Test Name Order Date CT Chest w/o Contrast diagnostic-[id number] 02/06/2026 Next Appt Details Provider Name:Zac Chiu, 02/20/2026 01:10:00 PM, [address] [place] [address] [address], [place], [address], Insurance Providers Payer Name Payer Address Payer Phone Subscriber Number Group Number Insured Name Patient Relationship to Insured Coverage Start Date Coverage End Date [employer]UM [address] [place] [phone] [id number] Caleb Rogers Self - patient is the insured Medical (General) History Medical History History ICD Code Measles, Mumps, Chicken Pox Pneumonia Heart Disease Arthritis Diabetes Glaucoma HTN
--- OUTSIDE RECORDS SUMMARY | 2025-04-19 13:08 | XMS_ITS | Clinical Summary ---
Author Organization [facility] Address [address] [place] [address] Care Team Providers Care Waste Paper Hammermill Operator Name Role Phone Aleks LERNERDO Samuel Shavon Primary Care Provider Allergies No known active allergies Medications GABAPENTIN ORALIndications :PDR (proliferative diabetic retinopathy), type 2, without macular edema Active insulin aspart (NovoLOG) 100 unit/mL injection Inject by subcutaneous injection. Active insulin glargine (LANTUS) 100 unit/mL injection Inject by subcutaneous injection. Active apixaban (ELIQUIS ORAL) Take by mouth. 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 04/26/2015 Diabetic macular edema(362.07) 02/11/2015 Type II or unspecified type diabetes mellitus with ophthalmic manifestations, not stated as uncontrolled(250.50) 02/11/2015 Diabetes mellitus Resolved Problems Problem Noted Date Diagnosed Date Resolved Date PDR (proliferative diabetic retinopathy) 07/30/2014 02/11/2015 Social History Tobacco Use Types Packs/Day Years Used Date Smoking Tobacco: Every Day Tobacco Cessation:Ready to Q uit: Yes; Counseling Given: Yes Alcohol Use Standard Drinks/Week Comments No 0 (1 standard drink = 0.6 oz pur e alcohol) Sex and Gender Information Value Date Recorded Sex Assigned at Not on file Legal Sex Male 11:26 AM PRACTICE PROFESSIONAL Gender Identity Not on file Sexual Orientation Not on file Last Filed Vital Signs Vital Sign Reading Time Taken Comments Blood Pressure 152/74 05/28/2020 11:14 AM PRACTICE PROFESSIONAL Pulse 83 05/28/2020 11:14 AM PRACTICE PROFESSIONAL Temperature 36.8 C (98.2 F) 05/07/2020 12:31 PM PRACTICE PROFESSIONAL Respiratory Rate 16 05/07/2020 12:31 PM PRACTICE PROFESSIONAL Oxygen Saturation 99% 05/07/2020 12:31 PM PRACTICE PROFESSIONAL Inhaled Oxygen Concentration - - Weight 77.1 kg (170 lb) 05/28/2020 11:14 AM PRACTICE PROFESSIONAL Height 193 cm (6' 4 ) 05/28/2020 11:14 AM PRACTICE PROFESSIONAL Body Mass Index 20.69 05/28/2020 11:14 AM PRACTICE PROFESSIONAL Plan of Treatment Health Maintenance Due Date Last Done Comments DIABETES ANNUAL FOOT EXAM 1967 DIABETES MICROALBUMIN ANNUAL SCREEN 1967 LDL CHOLESTEROL ANNUAL 1967 COLORECTAL SCREENING 1994 Colorectal Cancer Screening 1994 FIT-DNA Q 3 years 1994 FIT/FOBT Q 1 year 1994 Flex Sig/CT Colonography Q 5 years 1994 ZOSTER VACCINE (1 of 2) 1999 DIABETES ANNUAL RETINAL EXAM 12/22/2017, 12/22/2016, 12/22/2016, Additional history exists DIABETES HBA1C Q 6 MONTHS 09/30/2020 04/02/2020 RSV VACCINE (60+ or ) (1 - 1-dose 75+ series) 2024 DTAP/TDAP/TD VACCINES (3 - T d or Tdap) 10/30/2024 10/30/2014, 09/10/2010 INFLUENZA VACCINE (#1) 2025 03/31/2019, 2017 PNEUMOCOCCAL VACCINE 50+ YEARS Completed 08/24/2017 , 07/26/2015 Procedures Procedure Name Priority Date/Time Associated Diagnosis Comments ND CPTRIZED OPH DX IMG PST SEGMENT UNI/BI RETINA Routine 03/24/2016 11:36 AM CDT from Last 3 Months or Most Recently Relevant to Health Maintenance Results * ND CPTRIZED OPH DX IMG PST SEGMENT UNI/BI RETINA (03/24/2016 11:36 AM CDT) Narrative [facility] OPHTHALMOLOGY ORDERS - 03/24/2016 11:36 AM CDT Keven Cai MD 03/24/2016 11:36 AM Optical Coherence Tomography: Right Eye: Trace progression of diabetic macular edema Left Eye: No diabetic macular edema, stable us Keven Cai MD OPH OTHER Final Resul t [facility] OPHTHALMOLOGY ORDERS from Last 3 Months or Most Recently Relevant to Health Maintenance Insurance [facility] 16 CONSOLIDATED FEE UNIT [facility] OPTUM Care Teams Waste Paper Hammermill Operator Relationship Specialty Start Date End Date Luis Alberto Fink II, DO [facility] Community Team [phone] [place] [place] [address] PCP - General Family Practice 07/30/14
--- OUTSIDE RECORDS SUMMARY | 2025-04-19 13:08 | XMS_ITS | Clinical Summary ---
Author Organization [facility] Address [address] [place] [address] Phone Care Team Providers Care Anti Air Warfare Operations Officer Name Role Phone Unavailable Primary Care Provider Unavailabl e Allergies Active Allergy Reactions Criticality Noted Date Comments Adhesive Tape 07/22/2023 Paper tape Medications insulin aspart protamine-insul in aspart (NovoLOG 70/30 FlexPen ReliOn) (70-30) 100 UNIT/ML injection Inject under the skin 05/07/2020 Active apixaban (ELIQUIS) 5 MG tablet Take by mouth 05/07/2020 Activ e ferrous sulfate 325 (65 Fe) MG EC tablet Take 325 mg by mouth in the morning and 325 mg at noon and 325 mg in the evening. Take with meals. Do not crush, chew, or split.. Active insulin glargine (LANTUS) 100 UNIT/ML injection Inject under the skin every night Active lisinopril 40 MG tablet Take 40 mg by mouth 1 (one) time each day Active Melatonin 5 MG tablet Take by mouth Active rOPINIRole (REQUIP) 1 MG tablet Take 1 mg by mouth in the morning and 1 mg in the evening and 1 mg before bedtime. Active zolpidem (AMBIEN) 10 MG tablet Take 10 mg by mouth at night if needed for sleep Active metoprolol tartrate (LOPRESSOR) 50 MG tablet Take 50 mg by mouth in the morning and 50 mg in the evening. Active gabapentin (NEURONTIN) 300 MG capsule Take 300 mg by mouth in the morning and 300 mg in the evening and 300 mg before bedtime. Active aspirin (ST LAMIN) 81 MG EC tablet Take 81 mg by mouth 1 (one) time each day Active Empagliflozin 10 MG tablet Take 10 mg by mouth in the morning. Active Fluticasone-Ume clidin-Vilant (Trelegy Ellipta) 100-62.5-25 MCG/ACT aerosol powder 08/28/2024 Active rosuvastatin (CRESTOR) 20 MG tablet Take 10 mg by mouth 1 (one) time each day 07/28/2024 Active traZODone (DESYREL) 100 MG tablet Take 100 mg by mouth every night 11/10/2024 Active HYDROcodone-judith taminophen (NORCO) 7.5-325 MG per tablet Take 1 tablet by mouth every 6 (six) hours if needed for moderate pain Active tiotropium (SPIRIVA) 18 MCG per inhalation capsule Place 1 capsule into inhaler and inhale 1 (one) time each day Active Active Problems No known active problems Family History Medical History Relation Comments Diabetes Brother Stroke Father Cancer Mother Heart disease Mother Relation Status Comments Brother Father Mother Social History Tobacco Use Types Packs/Day Years Used Date Smoking Tobacco: Every Day Cigarettes Smokeless Tobacco: Never Tobacco Cessation:Ready to Q uit: Not Asked; Counseling Given: Not Answered Alcohol Use Standard Drinks/Week Comments Yes 0 (1 standard drink = 0.6 oz pur e alcohol) Sex and Gender Information Value Date Recorded Sex Assigned at Not on file Legal Sex Male 12:35 PM EDT Gender Identity Not on file Sexual Orientation Not on file Last Filed Vital Signs Vital Sign Reading Time Taken Comments Blood Pressure 134/82 12/12/2024 11:47 AM CDT Pulse 76 12/12/2024 11:47 AM CDT Temperature - - Respiratory Rate - - Oxygen Saturation 95% 12/12/2024 11:47 AM CDT Inhaled Oxygen Concentration - - Weight - - Height - - Body Mass Index - - Plan of Treatment Upcoming Encounters Date Type Department Care Team (Late st Contact Info) Description 06/25/2025 10:00 AM AUTOMOBILE DETAILER Office Visit [facility] [address] [place] [address] Chaya Loza NP [address] [place] [address] Health Maintenance Due Date Last Done Comments Hepatitis B Vaccine (1 of 3 - Risk 3-dose series) 2009 Diabetes: Ophthalmology Exam 03/30/2023, 03/24/2016, 08/29/2015, Additional history exists Diabetes: Pedal Pulse Checked 03/30/2023 Diabetes: Sensory Foot Exam 03/30/2023 Diabetes: Visual Foot Exam 03/30/2023 Diabetes: Hemoglobin A1C 10/26/2024 07/28/2024, 08/3 07/2022 Influenza Vaccine (#1) 2025 , 06/16/2023, 06/10/2023, Additional history exists Pneumococcal Vaccine: 50+ Years Completed 08/24/2017, 07/26/2015, 07/02/2010 Procedures Procedure Name Priority Date/Time Associated Diagnosis Comments HEMOGLOBIN A1C (EXTERNAL RESULT ENTRY) Routine 07/28/2024 from Last 3 Months or Most Recently Relevant to Health Maintenance Results * Hemoglobin A1C (07/28/2024) Hemoglobin A1C 8.2 Blood Venous blood / Unknown 07/28/2024 Narrative Queta Santana MA - 07/28/2024 [facility] External Provider LAB BLOOD ORDERABLES Final Result from Last 3 Months or Most Recently Relevant to Health Maintenance Insurance [facility] Regions 1,2,3 (VACCN)
--- OUTSIDE RECORDS SUMMARY | 2025-04-19 13:08 | XMS_ITS | Clinical Summary ---
Author Organization [facility] Address [address] Attn: Epic Prelude ADT [place] [address] Care Team Providers Care Honey Liquefier Name Role Phone Aleks LERNER DO, Samuel A Primary Care Provider Allergies No known active allergies Medications insulin aspart (NovoLOG) 100 unit/mL injection Inject by subcutaneous injection. 0 Active insulin glargine (LANTUS) 100 unit/mL injection Inject by subcutaneous injection. 0 Active apixaban (ELIQUIS ORAL) Take by mouth. 0 Active GABAPENTIN ORALIndications :PDR (proliferative diabetic retinopathy), type 2, without macular edema 5 Active empagliflozin (JARDIANCE) 10 mg tablet Take 10 mg by mouth daily in the morning. Takes 1/2 pill Active rOPINIRole (REQUIP) 1 mg tablet Take 1 mg by mouth. 4 Active traZODone (DESYREL) 100 mg tablet 5 Active hydrocodone bit/homatrop me-br (HYDROCODONE-HO MATROPINE ORAL) Take by mouth. 10 milligrams Active potassium CHLORIDE (K-DUR,KLOR-CON M20) 20 mEq Extended Release tablet Take 30 mEq by mouth. 4 Active furosemide (LASIX) 20 mg tablet Take 40 mg by mouth. 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 mellitus 04/26/2015 Diabetic macular edema(362.07) 02/11/2015 Type II or unspecified type diabetes mellitus with ophthalmic manifestations, not stated as uncontrolled(250.50) 02/11/2015 Diabetes mellitus Resolved Problems Problem Noted Date Diagnosed Date Resolved Date PDR (proliferative diabetic retinopathy) 07/30/2014 02/11/2015 Encounters Date Type Department Care Team Description 04/17/2025 External Device Data STL ABSTRACTION Provider, Abstract 03/20/2025 External Device Data ST[facility] ABSTRACTION Provider, Abstract 03/20/2025 External Device Data ST[place] ABSTRACTION Provider, Abstract 02/21/2025 External Device Data ST[place] ABSTRACTION Provider, Abstract 02/06/2025 External Device Data ST[place] ABSTRACTION Provider, Abstract 01/17/2025 External Device Data ST[place] ABSTRACTION Provider, Abstract from Last 3 Months Social History Tobacco Use Types Packs/Day Years Used Date Smoking Tobacco: Every Day Tobacco Cessation:Ready to Q uit: Not Asked; Counseling Given: Not Answered Alcohol Use Standard Drinks/Week Comments No 0 (1 standard drink = 0.6 oz pur e alcohol) Sex and Gender Information Value Date Recorded Sex Assigned at Not on file Legal Sex Male 4:56 AM MAIL CALLER Gender Identity Not on file Sexual Orientation Not on file Last Filed Vital Signs Vital Sign Reading Time Taken Comments Blood Pressure 130/83 11/21/2024 11:03 AM CDT Pulse 61 11/21/2024 11:03 AM CDT Temperature 36.8 C (98.2 F) 05/07/2020 12:31 PM MAIL CALLER Respiratory Rate 16 05/07/2020 12:31 PM MAIL CALLER Oxygen Saturation - - Inhaled Oxygen Concentration - - Weight 78 kg (172 lb) 11/21/2024 11:03 AM CDT Height 193 cm (6' 4 ) 11/21/2024 11:03 AM CDT Body Mass Index 20.94 11/21/2024 11:03 AM CDT Plan of Treatment Health Maintenance Due Date Last Done Comments DIABETES ANNUAL FOOT EXAM 1967 DIABETES MICROALBUMIN ANNUAL SCREEN 1967 LDL CHOLESTEROL ANNUAL 1967 COLORECTAL SCREENING 1994 Colorectal Cancer Screening 1994 FIT-DNA Q 3 years 1994 FIT/FOBT Q 1 year 1994 Flex Sig/CT Colonography Q 5 years 1994 Abdominal Aortic Aneurysm (A AA) Screening 2014 RSV VACCINE (60+ or ) (1 - 1-dose 75+ series) 2024 DTAP/TDAP/TD VACCINES (3 - T d or Tdap) 10/30/2024 10/30/2014, 09/10/2010, 09/10/2010 DIABETES HBA1C Q 6 MONTHS 01/25/2025 07/28/2024 INFLUENZA VACCINE (#1) 2025 , 06/10/2023, 03/10/2022, Additional history exists COVID-19 Vaccine (4 - 2024-2 6 season) 2025 06/12/2021, 10/01/2020, 09/03/2020 DIABETES ANNUAL RETINAL EXAM 05/11/202501/2024, 05/11/2024, 12/22/2016, Additional history exists ZOSTER VACCINE Completed 12/31/2017, 10/04, 11/20/2010 PNEUMOCOCCAL VACCINE 50+ YEARS Completed 1 07/11/2023, 08/24/2017, 07/26/2015, Additional history exists Procedures Procedure Name Priority Date/Time Associated Diagnosis Comments OPHTHALMIC DIAGNOSTIC IMAGE RETINA LEENA Routine 03/24/2016 11:36 AM CDT Proliferative diabetic retinopathy with macular edema associated with type 2 diabetes mellitus ([facility]) from Last 3 Months or Most Recently Relevant to Health Maintenance Results * OPHTHALMIC DIAGNOSTIC IMAGE RETINA LEENA (03/24/2016 11:36 AM CDT) Narrative INTERFACE SYSTEM - 03/24/2016 11:36 AM CDT Keven Cai MD 03/24/2016 11:36 AM Optical Coherence Tomography: Right Eye: Trace progression of diabetic macular edema Left Eye: No diabetic macular edema, stable Procedure Note Conversion, Auto Data - 10/08/2021 Keven Cai MD 03/24/2016 11:36 AM Optical Coherence Tomography: Right Eye: Trace progression of diabetic macular edema Left Eye: No diabetic macular edema, stable us Keven Cai MD OPHTH OTHER Final Resul t INTERFACE SYSTEM Refer to clinic/hospital department from Last 3 Months or Most Recently Relevant to Health Maintenance Insurance [place] [employer] Care Teams Honey Liquefier Relationship Specialty Start Date End Date Luis Alberto Fink II, DO [facility] Administrative Community Team [phone] [place] [address] PCP - General Family Practice 07/30/14
--- OUTSIDE RECORDS SUMMARY | 2025-04-19 13:08 | XMS_ITS | Encounter Summary ---
Author Organization [facility] Address [address] [facility] [address] [place] [address] Phone Care Team Providers Care Compactor Driver Name Role Phone Unavailable Primary Care Provider Unavailabl e Encounter Details Date Type Department Care Team (Late st Contact Info) Description 03/24/[address] [facility] [address] [facility] [address] [place] [address] Abnormal result of kidney function study Social History Tobacco Use Types Packs/Day Years Used Date Smoking Tobacco: Never Assessed Sex and Gender Information Value Date Recorded Sex Assigned at Not on file Legal Sex Male 12:35 PM EDT Gender Identity Not on file Sexual Orientation Not on file documented as of this encounter Plan of Treatment Upcoming Encounters Date Type Department Care Team (Late st Contact Info) Description 06/25/2025 10:00 AM HACK DRIVER [facility] [address] [place] [address] Chaya Loza NP [address] [facility] [address] [place] [address] documented as of this encounter Visit Diagnoses Diagnosis Abnormal result of kidney function study documented in this encounter
--- NOTE | 2025-04-19 14:14 | ECG_ITS ---
[facility] Test Date: 2025-04-19 Pat Name: Caleb Rogers Department: Room: Gender: Male Wildlife Protector: : 1950 Requested By: Orlando Chapman Order Number: [id number] Garza MD: Osmel Walker M.D. Measurements Intervals [place] Rate: 77 P: 0 [place]: 0 QRS: 113 QRSD: 89 T: 56 QT: 385 QTc: 436 Interpretive Statements ATRIAL FIBRILLATION POSSIBLE RIGHT VENTRICULAR HYPERTROPHY [SOME/ALL OF: PROMINENT R IN V1, LATE TRANSITION, RAD, ELSA, SSS] SEPTAL MYOCARDIAL INFARCTION , OF INDETERMINATE AGE [40+ ms Q WAVE IN V1/V2] No previous ECG available for comparison Electronically Signed On 04-21-2025 12:03:04 CDT by Osmel Walker M.D. [email or web address]
--- NOTE | 2025-04-19 14:14 | XR_ITS ---
WS: [id number] XR chest 1V portable [id number] REASON FOR EXAM: cp FINDINGS: No recent examination for comparison. Thoracic aorta is within normal limits. No other mediastinal abnormality. The heart is mildly enlarged. Calcified granulomatous disease bilaterally. Flattening of the hemidiaphragms. There is blunting of the costophrenic angle of unknown chronicity. This could represent a small right pleural effusion. There is prominence and slightly increased density of the right hilum. This appears to be an overlap either posteriorly or anteriorly. Possibly artifact. Incompletely evaluated. Small area of reticular interstitial and groundglass opacities in the medial right lower lung field. Chronicity unknown. Moderate degenerative spondylosis in the thoracic spine. XR/XR chest 1V portable [id number] IMPRESSION: Possible right pleural effusion and right lower lung opacities of unknown chron icity as above. Patient had a large right pleural effusion on the CT scan of 06/20/2024. Abnormal appearance of the right hilum. Follow-up chest x-ray or CT scan of the chest as clinically warranted.
[2025-04-19 14:27] LABS: Hematocrit 47.6 % (37-53); Hemoglobin 15.30 g/dL (11.27-16.99); Mean Corpuscular HGB Conc 32.1 g/dL (30-55); Mean Corpuscular Hemoglobin 33.6 pg (27-33); Mean Corpuscular Volume 104.6 fl (82-101); Nucleated Red Blood Cells % 0 %; Platelet Count 125 10^3/cmm (157-399); Red Blood Count 4.55 10^6/uL (3.85-5.65); White Blood Count 6.28 10^3/uL (3.29-11.43)
--- NOTE | 2025-04-19 14:48 | ED_ITS ---
Documented by User: TODD Lilly 04/19/25 23:56 HPI - Chest Pain 2 General: Chief Complaint: Chest Pain Stated Complaint: chest pain Time Seen by Provider: 04/19/25 14:06 Source: patient Mode of arrival: ambulatory Limitations: no limitations History of Present Illness: Patient is a 75-year-old male with past medical history of atrial fibrillation and is a chronic everyday smoker presenting with chest pressure for the past few days. He also notes symptoms of feeling weak, nauseous, dizziness, and shortness of breath. States that he is actively having pressure at this time, and it radiates to bilateral arms. Denies history of heart attack or stroke. He is on a blood thinner for atrial fibrillation, states he does not currently see abrasive grinder but does have an appointment set for May 04. Does not report any specific alleviating or exacerbating factors, he does state that it feels like a constant pressure to the substernal region. Vitals are stable, he has not taken any medications for his pain. He does note that prior to 3 days ago with this current episode of pain, he has had this pain in the past but it has spontaneously resolved. MD complaint: chest pain Pertinent past history: other (afib) Onset (ago): day(s) Timing of current episode: constant Prior episodes: Yes Onset: during rest Pain location: substernal Pain radiation: right arm and left arm Severity: mild Quality: other (Pressure) Relieving factors: nothing Exacerbating factors: nothing Associated symptoms: Reports dyspnea and nausea; Deny abdominal pain, fever(s), palpitations or vomiting Treatment prior to arrival: none Related Data Home Medications ?Medication ?Instructions ?Recorded ?Confirmed apixaban 5 mg tablet (Eliquis) 5 mg PO BID 04/19/25 fluticasone fur. 100 mcg-umeclid 100 inh inhalation DA KATIE 04/19/25 04/19/25 62.5 mcg-vilant 25 mcg inhalat.powder (Trelegy Ellipta) gabapentin 300 caplet PO TID Unobtainab le 04/19/25 04/19/25 hydrocodone 7.5 mg-acetaminophen 7.5 tab PO Q6H PRN pa in 04/19/25 04/19/25 325 mg tablet insulin glargine 100 unit/mL (3 23 unit SUBCUT QAM 04/19/25 mL) subcutaneous pen (Lantus Solostar U-100 Insulin) insulin lispro 100 unit/mL See Protocol SUBCUT BIDWM 1 04/19/25 subcutaneous pen (Humalog KwikPen (U-100) Insulin) metoprolol succinate 25 mg 25 mg PO DAILY 04/19/25 tablet,extended release 24 hr ropinirole 2 mg tablet 2 mg PO BID PRN Restless Leg (S) 04/19/25 04/20/25 trazodone 100 mg tablet 100 mg PO BEDTIME PRN insomn ia 04/19/25 04/19/25 Previous Rx's ?Medication ?Instructions ?Recorded diabetic shoes with 3 inserts #1 ea 09/16/23 flash glucose scanning reader #1 ea 10/25/23 (FreeStyle Kalyani 2 [place]) fast form cockup splint right wrist #1 ea 01/19/24 atorvastatin 40 mg tablet 40 mg PO DAILY #90 tabs 01/25 flash glucose sensor (FreeStyle #6 ea 02/09/24 Kalyani 2 Sensor kit) PTB - AFO left #1 ea 02/11/24 celecoxib 100 mg capsule (Celebrex) 100 mg PO BID 90 d ays #180 caps 02/16/24 custom 3010 inserts with right 1st #1 ea 12/06/24 met cut out Allergies Allergy/AdvReac Type Severity Reaction Status Date / Time No Known Allergies Allergy Verified 02/07/25 11:37 Review of Systems 2 General: Reports: 10 or more systems reviewed and unremarkable except in HPI and below Const: Reports: malaise; Denies: fever(s) or chills Eyes: Denies: change in vision ENMT: Denies: throat pain, ear or mastoid pain or nasal discharge Card: Reports: chest pain; Denies: palpitations, swelling of feet/ankles or lightheadedness Resp: Reports: dyspnea; Denies: productive cough or wheezing GI: Reports: nausea; Denies: abdominal pain, vomiting, diarrhea or constipation : Denies: flank pain, difficulty urinating, dysuria or urinary frequency Musc: Denies: neck pain, back pain or joint pain Skin/Breast: Denies: rash Neuro: Reports: dizziness; Denies: headache(s), numbness in extremities or weakness in extremities PFSH ED 2 PFSH: Medical History Closed fracture of right distal radius Social History Smoking and tobacco/nicotine status: current every day tobacco/nicotine user Physical Exam 2 Const: COMMON NORMALS: no acute distress, patient oriented x3 and no limitations GENERAL APPEARANCE: cooperative, comfortable and well developed ORIENTATION/CONSCIOUSNESS: Yes awake, Yes oriented to person, Yes oriented to place and Yes oriented to time HENMT: COMMON NORMALS: normocephalic, atraumatic and hearing grossly normal bilaterally HEAD & SCALP: normocephalic and atraumatic Eye: COMMON NORMALS: Equal, round and reactive pupils present, EOMs intact bilaterally and conjunctivae normal CONJUNCTIVA: Yes conjunctivae normal P UPIL: Yes Equal, round and reactive pupils present Neck/C-Spine: COMMON NORMALS: full ROM, supple and no JVD Resp: COMMON NORMALS: normal respiratory effort, No retractions, No use of accessory muscles and clear to auscultation bilaterally AUSCULTATION: clear to auscultation bilaterally Cardio: COMMON NORMALS: no JVD, regular rate, regular rhythm, No clicks present (Cardio), No murmurs present (Cardio) and No rub (Cardio) RATE: r egular rate RHYTHM: regular rhythm GI: COMMON NORMALS: Normal to inspection, nondistended, normoactive bowel sounds present and Soft to palpation AUSCULTATION: Yes normoactive bowel sounds PALPATION: Yes Soft to palpation and Yes Tenderness to palpation present (GI) (Epigastric) RECTAL EXAM: Yes deferred Extremity: COMMON NORMALS: normal to inspection, full ROM and capillary refill normal Neuro: COMMON NORMALS: patient oriented x3, moves all extremities, no focal motor deficits and no sensory deficits noted SENSORIUM/ORIENTATION: Yes oriented to person, Yes oriented to place and Yes oriented to time Skin: COMMON NORMALS: no rashes or lesions noted GENERAL SKIN EXAM: no rashes or lesions noted Course 2 Vital Signs: Vital signs: Vital Signs Temperature 98.1 F 04/23/25 07:02 Pulse Rate 86 04/23/25 07:02 Respiratory Rate 17 04/23/25 07:26 Blood Pressure 159/99 04/23/25 07:02 Pulse Oximetry 95 04/23/25 07:26 Oxygen Delivery Me thod Room Air 04/23/25 07:02 MDM - Chest Pain Medical Decision Making This patient presents for reports of chest pain for the past 3 days. Associated symptoms of dizziness, shortness of breath, and overall feeling unwell. History of A-fib on anticoagulation. EKG showing atrial fibrillation with no acute ST segment changes. Chest x-ray showing possible right pleural effusion. With lab work, he has elevated troponin at 42 and positive delta troponin of -12.6. BNP also elevated to 1000 4091. D-dimer was negative, and there is no PE on CT of the chest. There is confirmed moderate right pleural effusion nonspecific at this time, his procalcitonin was negative making pneumonia unlikely. His vitals have also been stable throughout the ED course. Suspect that he needs/requires admission to cardiology services for further ACS rule out and I spoke to Dr. Mack, who is currently set to see the patient at the other month, who agrees to except the patient in the hospital for further cardiac management. I then spoke to Dr. Adan, hospitalist, agreeing to accept patient to cardiac stepdown. Informed Dr. Jorge of this patient who places admit orders. Also informed patient and family of this plan who are in agreement. Lab Data 04/23/25 04:16 04/23/25 04:16 Radiology Impressions Chest X-Ray 04/19/25 14:14 IMPRESSION: Possible right pleural effusion and right lower lung opacities of unknown chronicity as above. Patient had a large right pleural effusion on the CT scan of 06/20/2024. Abnormal appearance of the right hilum. Follow-up chest x-ray or CT scan of the chest as clinically warranted. Chest/Abdomen/Pelvis CT 04/19/25 15:45 IMPRESSION: 1. Moderate right pleural effusion. 2. Centrilobular and paraseptal emphysematous changes are present bilaterally. 3. There are a few scattered pulmonary nodules within the right and left lung as described. Largest measures up to 7 mm. For patients at low risk (minimal or absent history of smoking and of other known risk factors), recommend CT Chest at 3-6 months, then consider CT Chest at 18-24 months. For patients at high risk (history of smoking or of other known risk factors), recommend CT Chest at 3-6 months, then CT Chest at 18-24 months. IMPRESSION: 1. Abnormal heterogeneous enhancement is present throughout the liver. Liver appears mottled. Geographic areas of heterogeneous enhancement and scattered hypodensities are present within the right lobe of the liver. A portion of the liver surface appears slightly nodular. Please correlate with any history of cirrhosis. Infiltrative process of the liver is not excluded. Continued surveillance is recommended. Follow-up MRI of the liver should be considered. 2. Mild dilatation of the common bile duct is unchanged. No significant intrahepatic ductal dilatation. No opaque stones or sludge within the gallbladder. 3. Large amount of stool throughout the colon in keeping with constipation. No evidence of a small bowel obstruction. No evidence for acute colitis. 4. Mild diffuse stranding is present throughout the mesenteric fat within the abdomen and pelvis. Findings are somewhat nonspecific. 5. No infrarenal abdominal aortic aneurysm. No evidence for dissection of the abdominal aorta. Major branch vessels are patent. 6. The bladder is markedly distended. Liver Ultrasound 04/21/25 13:52 IMPRESSION: Heterogeneous appearance of the liver. No focal lesion identified. Laboratory Results WBC 6.28 10^3/uL (3.29-11.43) 04/19/25 14:20 RBC 4.55 10^6/uL (3.85-5.65) 04/19/25 14:20 Hgb 15.30 g/dL (11.27-16.99) 04/19/25 14:20 Hct 47.6 % (37-53) 04/19/25 14:20 MCV 104.6 fl (82-101) H 04/19/25 14:20 MCH 33.6 pg (27-33) H 04/19/25 14:20 MCHC 32.1 g/dL (30-55) 04/19/25 14:20 RDW 14.6 % (12.1-15.1) 04/19/25 14:20 Plt Count 125 10^3/cmm (157-399) L 04/19/25 14:20 MPV 9.3 fL (7.4-10.4) 04/19/25 14:20 Neut % (Auto) 74.5 % 04/19/25 14:20 Lymph % (Auto) 17.4 % 04/19/25 14:20 Barnes % (Auto) 6.8 % 04/19/25 14:20 Eos % (Auto) 0.5 % 04/19/25 14:20 Baso % (Auto) 0.6 % 04/19/25 14:20 Neut # (Auto) 4.68 10^3/uL (1.8-7.7) 04/19/25 14:20 Lymph # (Auto) 1.1 10^3/uL (0.8-4.8) 04/19/25 14:20 Barnes # (Auto) 0.4 10^3/uL (0.2-0.9) 04/19/25 14:20 Eos # (Auto) 0.0 10^3/uL (0.0-0.8) 04/19/25 14:20 Baso # (Auto) 0.0 10^3/uL (0.0-0.1) 04/19/25 14:20 Nucleated RBC % (auto) 0 % 04/19/25 14:20 Nucleated RBCs # 0.0 /100WBC 04/19/25 14:20 ESR 7 mm/hr (0-10) 04/19/25 14:20 PT 15.20 SECONDS (12.1-14.9) H 04/19/25 14:40 INR 1.12 (0.8-1.2) 04/19/25 14:40 APTT 34.5 SECONDS (23.9-36.7) 04/19/25 14:40 D-Dimer 0.59 ug/mLFEU (0-0.59) 04/19/25 14:40 Sodium 141 mmol/L (136-145) 04/19/25 14:40 Potassium 4.6 mmol/L (3.5-5.1) 04/19/25 14:40 Chloride 99 mmol/L (98-107) 04/19/25 14:40 Carbon Dioxide 27 mmol/L (22-29) 04/19/25 14:40 Anion Gap 19.6 (5-19) H 04/19/25 14:40 BUN 32 mg/dL (8-23) H 04/19/25 14:40 Creatinine 0.9 mg/dL (0.7-1.2) 04/19/25 14:40 GFR Calculation Not Reportable 04/19/25 14:40 Glucose 215 mg/dL (65-115) H 04/19/25 14:40 Estimat Average Glucose 206 04/19/25 14:20 Hemoglobin A1c 8.8 % (4.0-6.0) H 04/19/25 14:20 Calculated Osmolality 305 mOsm/kg (285-295) H 04/19/25 14:40 Calcium 9.5 mg/dL (8.5-10.5) 04/19/25 14:40 Iron 133 ug/dL (59-158) 04/19/25 14:40 Ferritin 105 ng/mL (30-400) 04/19/25 14:40 Total Bilirubin 2.0 mg/dL (0.15-1.2) H 04/19/25 14:40 GGT 200 U/L (8-61) H 04/19/25 14:40 AST 21 U/L (0-40) 04/19/25 14:40 ALT 22 U/L (0-41) 04/19/25 14:40 Alkaline Phosphatase 338 U/L (40-130) H 04/19/25 14:40 Troponin T Baseline 42 ng/L (0-15) H 04/19/25 14:40 Troponin T 120 Minute 29.32 ng/L (0-15) H 04/19/25 16:33 Delta Troponin T -12.68 ABS# (0-10) L 04/19/25 16:33 NT-Pro-B Natriuret Pep 1491 pg/mL (0-450) H 04/19/25 14:40 Total Protein 7.3 g/dL (6.6-8.7) 04/19/25 14:40 Albumin 4.4 g/dL (3.5-5.2) 04/19/25 14:40 Globulin 2.9 g/dL (1.3-4.6) 04/19/25 14:40 Triglycerides 71 mg/dL (0-150) 04/19/25 14:40 Cholesterol 124 mg/dL (0-200) 04/19/25 14:40 LDL Cholesterol, Calc 46 mg/dL (50-129) L 04/19/25 14:40 HDL Cholesterol 64 mg/dL (60-100) 04/19/25 14:40 LDL/HDL Ratio 0.72 RATIO (0.00-3.22) 04/19/25 14:40 Cholesterol/HDL Ratio 1.94 mg/dL (1.0-5.00) 04/19/25 14:40 Lipase 8 U/L (13-60) L 04/19/25 14:40 Procalcitonin 0.06 ng/mL (0-0.5) 04/19/25 14:40 TSH 1.03 uIU/mL (0.27-4.20) 04/19/25 14:40 Ethyl Alcohol < 10 mg/dL (0-10) 04/19/25 14:40 Hepatitis A IgM Ab Non-reactive (Nonreactive) 04/19/25 14:40 Hep Bs Antigen Non-reactive (Nonreactive) 04/19/25 14:40 Hep B Core IgM Ab Non-reactive (Nonreactive) 04/19/25 14:40 Hepatitis C Antibody Non-reactive (Nonreactive) 04/19/25 14:40 HIV 1&2 Ab & HIV 1 Ag Non-reactive (Non-Reactiv) 04/19/25 14:40 HIV 1&2 Antibody Non-reactive (Non-Reactiv) 04/19/25 14:40 All radiology interpretation(s) finalized by discharge Discharge Plan Discharge Patient Disposition: Admitted As Inpatient Admit Provider: Morris Bruno Clinical Impression: Chest pain Qualifiers: Chest pain type: unspecified Qualified Code(s): R07.9 - Chest pain, unspecified Condition: Stable Coding Level of Care Code 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 100 mcg-umeclid 100 inh inhalation DA KATIE 04/19/25 04/19/25 62.5 mcg-vilant 25 mcg inhalat.powder (Trelegy Ellipta) gabapentin 300 caplet PO TID Unobtainab le 04/19/25 04/19/25 hydrocodone 7.5 mg-acetaminophen 7.5 tab PO Q6H PRN pa in 04/19/25 04/19/25 325 mg tablet insulin glargine 100 unit/mL (3 23 unit SUBCUT QAM 04/19/25 mL) subcutaneous pen (Lantus Solostar U-100 Insulin) insulin lispro 100 unit/mL See Protocol SUBCUT BIDWM 1 04/19/25 subcutaneous pen (Humalog KwikPen (U-100) Insulin) metoprolol succinate 25 mg 25 mg PO DAILY 04/19/25 tablet,extended release 24 hr ropinirole 2 mg tablet 2 mg PO BID PRN Restless Leg (S) 04/19/25 04/20/25 trazodone 100 mg tablet 100 mg PO BEDTIME PRN insomn ia 04/19/25 04/19/25 Previous Rx's ?Medication ?Instructions ?Recorded diabetic shoes with 3 inserts #1 ea 09/16/23 flash glucose scanning reader #1 ea 10/25/23 (FreeStyle Kalyani 2 [place]) fast form cockup splint right wrist #1 ea 01/19/24 atorvastatin 40 mg tablet 40 mg PO DAILY #90 tabs 0801/25 flash glucose sensor (FreeStyle #6 ea 02/09/24 Kalyani 2 Sensor kit) PTB - AFO left #1 ea 02/11/24 celecoxib 100 mg capsule (Celebrex) 100 mg PO BID 90 d ays #180 caps 02/16/24 custom 3010 inserts with right 1st #1 ea 12/06/24 met cut out Allergies Allergy/AdvReac Type Severity Reaction Status Date / Time No Known Allergies Allergy Verified 02/07/25 11:37 PFS ED 2 PFS: Medical History Closed fracture of right distal radius Social History Smoking and tobacco/nicotine status: current every day tobacco/nicotine user Course 2 Vital Signs: Vital signs: Vital Signs Temperature 98.1 F 04/23/25 07:02 Pulse Rate 86 04/23/25 07:02 Respiratory Rate 17 04/23/25 07:26 Blood Pressure 159/99 04/23/25 07:02 Pulse Oximetry 95 04/23/25 07:26 Oxygen Delivery Me thod Room Air 04/23/25 07:02 MDM - Chest Pain Lab Data 04/23/25 04:16 04/23/25 04:16 Radiology Impressions Chest X-Ray 04/19/25 14:14 IMPRESSION: Possible right pleural effusion and right lower lung opacities of unknown chronicity as above. Patient had a large right pleural effusion on the CT scan of 06/20/2024. Abnormal appearance of the right hilum. Follow-up chest x-ray or CT scan of the chest as clinically warranted. Chest/Abdomen/Pelvis CT 04/19/25 15:45 IMPRESSION: 1. Moderate right pleural effusion. 2. Centrilobular and paraseptal emphysematous changes are present bilaterally. 3. There are a few scattered pulmonary nodules within the right and left lung as described. Largest measures up to 7 mm. For patients at low risk (minimal or absent history of smoking and of other known risk factors), recommend CT Chest at 3-6 months, then consider CT Chest at 18-24 months. For patients at high risk (history of smoking or of other known risk factors), recommend CT Chest at 3-6 months, then CT Chest at 18-24 months. IMPRESSION: 1. Abnormal heterogeneous enhancement is present throughout the liver. Liver appears mottled. Geographic areas of heterogeneous enhancement and scattered hypodensities are present within the right lobe of the liver. A portion of the liver surface appears slightly nodular. Please correlate with any history of cirrhosis. Infiltrative process of the liver is not excluded. Continued surveillance is recommended. Follow-up MRI of the liver should be considered. 2. Mild dilatation of the common bile duct is unchanged. No significant intrahepatic ductal dilatation. No opaque stones or sludge within the gallbladder. 3. Large amount of stool throughout the colon in keeping with constipation. No evidence of a small bowel obstruction. No evidence for acute colitis. 4. Mild diffuse stranding is present throughout the mesenteric fat within the abdomen and pelvis. Findings are somewhat nonspecific. 5. No infrarenal abdominal aortic aneurysm. No evidence for dissection of the abdominal aorta. Major branch vessels are patent. 6. The bladder is markedly distended. Liver Ultrasound 04/21/25 13:52 IMPRESSION: Heterogeneous appearance of the liver. No focal lesion identified. Laboratory Results WBC 6.28 10^3/uL (3.29-11.43) 04/19/25 14:20 RBC 4.55 10^6/uL (3.85-5.65) 04/19/25 14:20 Hgb 15.30 g/dL (11.27-16.99) 04/19/25 14:20 Hct 47.6 % (37-53) 04/19/25 14:20 MCV 104.6 fl (82-101) H 04/19/25 14:20 MCH 33.6 pg (27-33) H 04/19/25 14:20 MCHC 32.1 g/dL (30-55) 04/19/25 14:20 RDW 14.6 % (12.1-15.1) 04/19/25 14:20 Plt Count 125 10^3/cmm (157-399) L 04/19/25 14:20 MPV 9.3 fL (7.4-10.4) 04/19/25 14:20 Neut % (Auto) 74.5 % 04/19/25 14:20 Lymph % (Auto) 17.4 % 04/19/25 14:20 Barnes % (Auto) 6.8 % 04/19/25 14:20 Eos % (Auto) 0.5 % 04/19/25 14:20 Baso % (Auto) 0.6 % 04/19/25 14:20 Neut # (Auto) 4.68 10^3/uL (1.8-7.7) 04/19/25 14:20 Lymph # (Auto) 1.1 10^3/uL (0.8-4.8) 04/19/25 14:20 Barnes # (Auto) 0.4 10^3/uL (0.2-0.9) 04/19/25 14:20 Eos # (Auto) 0.0 10^3/uL (0.0-0.8) 04/19/25 14:20 Baso # (Auto) 0.0 10^3/uL (0.0-0.1) 04/19/25 14:20 Nucleated RBC % (auto) 0 % 04/19/25 14:20 Nucleated RBCs # 0.0 /100WBC 04/19/25 14:20 ESR 7 mm/hr (0-10) 04/19/25 14:20 PT 15.20 SECONDS (12.1-14.9) H 04/19/25 14:40 INR 1.12 (0.8-1.2) 04/19/25 14:40 APTT 34.5 SECONDS (23.9-36.7) 04/19/25 14:40 D-Dimer 0.59 ug/mLFEU (0-0.59) 04/19/25 14:40 Sodium 141 mmol/L (136-145) 04/19/25 14:40 Potassium 4.6 mmol/L (3.5-5.1) 04/19/25 14:40 Chloride 99 mmol/L (98-107) 04/19/25 14:40 Carbon Dioxide 27 mmol/L (22-29) 04/19/25 14:40 Anion Gap 19.6 (5-19) H 04/19/25 14:40 BUN 32 mg/dL (8-23) H 04/19/25 14:40 Creatinine 0.9 mg/dL (0.7-1.2) 04/19/25 14:40 GFR Calculation Not Reportable 04/19/25 14:40 Glucose 215 mg/dL (65-115) H 04/19/25 14:40 Estimat Average Glucose 206 04/19/25 14:20 Hemoglobin A1c 8.8 % (4.0-6.0) H 04/19/25 14:20 Calculated Osmolality 305 mOsm/kg (285-295) H 04/19/25 14:40 Calcium 9.5 mg/dL (8.5-10.5) 04/19/25 14:40 Iron 133 ug/dL (59-158) 04/19/25 14:40 Ferritin 105 ng/mL (30-400) 04/19/25 14:40 Total Bilirubin 2.0 mg/dL (0.15-1.2) H 04/19/25 14:40 GGT 200 U/L (8-61) H 04/19/25 14:40 AST 21 U/L (0-40) 04/19/25 14:40 ALT 22 U/L (0-41) 04/19/25 14:40 Alkaline Phosphatase 338 U/L (40-130) H 04/19/25 14:40 Troponin T Baseline 42 ng/L (0-15) H 04/19/25 14:40 Troponin T 120 Minute 29.32 ng/L (0-15) H 04/19/25 16:33 Delta Troponin T -12.68 ABS# (0-10) L 04/19/25 16:33 NT-Pro-B Natriuret Pep 1491 pg/mL (0-450) H 04/19/25 14:40 Total Protein 7.3 g/dL (6.6-8.7) 04/19/25 14:40 Albumin 4.4 g/dL (3.5-5.2) 04/19/25 14:40 Globulin 2.9 g/dL (1.3-4.6) 04/19/25 14:40 Triglycerides 71 mg/dL (0-150) 04/19/25 14:40 Cholesterol 124 mg/dL (0-200) 04/19/25 14:40 LDL Cholesterol, Calc 46 mg/dL (50-129) L 04/19/25 14:40 HDL Cholesterol 64 mg/dL (60-100) 04/19/25 14:40 LDL/HDL Ratio 0.72 RATIO (0.00-3.22) 04/19/25 14:40 Cholesterol/HDL Ratio 1.94 mg/dL (1.0-5.00) 04/19/25 14:40 Lipase 8 U/L (13-60) L 04/19/25 14:40 Procalcitonin 0.06 ng/mL (0-0.5) 04/19/25 14:40 TSH 1.03 uIU/mL (0.27-4.20) 04/19/25 14:40 Ethyl Alcohol < 10 mg/dL (0-10) 04/19/25 14:40 Hepatitis A IgM Ab Non-reactive (Nonreactive) 04/19/25 14:40 Hep Bs Antigen Non-reactive (Nonreactive) 04/19/25 14:40 Hep B Core IgM Ab Non-reactive (Nonreactive) 04/19/25 14:40 Hepatitis C Antibody Non-reactive (Nonreactive) 04/19/25 14:40 HIV 1&2 Ab & HIV 1 Ag Non-reactive (Non-Reactiv) 04/19/25 14:40 HIV 1&2 Antibody Non-reactive (Non-Reactiv) 04/19/25 14:40 Discharge Plan Discharge Patient Disposition: Admitted As Inpatient Admit Provider: Morris Bruno Clinical Impression: Chest pain Qualifiers: Chest pain type: unspecified Qualified Code(s): R07.9 - Chest pain, unspecified Condition: Stable Coding Level of Care Code 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
[2025-04-19 15:38] LABS: Alanine Aminotransferase 22 U/L (0-41); Albumin Level 4.4 g/dL (3.5-5.2); Alkaline Phosphatase 338 U/L (40-130); Anion Gap 19.6 (5-19); Aspartate Amino Transferase 21 U/L (0-40); Blood Urea Nitrogen 32 mg/dL (8-23); Calcium 9.5 mg/dL (8.5-10.5); Carbon Dioxide 27 mmol/L (22-29); Chloride 99 mmol/L (98-107); Creatinine Clr Calc Pharmacy 81.9006; Globulin 2.9 g/dL (1.3-4.6); Glucose 215 mg/dL (65-115); Lipase 8 U/L (13-60); Osmolality Calculated 305 mOsm/kg (285-295); Potassium 4.6 mmol/L (3.5-5.1); Sodium 141 mmol/L (136-145); Total Protein 7.3 g/dL (6.6-8.7)
[2025-04-19 15:42] LABS: Troponin(5th) Baseline 42 ng/L (0-15)
--- NOTE | 2025-04-19 15:45 | CTR_ITS ---
PROCEDURE INFORMATION: Exam: CT Chest With Contrast; Diagnostic Exam date and time: 04/19/2025 4:03 PM Age: 75 years old Clinical indication: Abdominal pain; Sternal or substernal pain; PT reports sunsternal chest pain that has been going on awhile but significantly worsened this am. PT also C/O increased weakness and tingling sensation on bilateral lower and upper extremities; Additional info: Cp/sob, epigastric tenderness, elevated bili, cxr findings TECHNIQUE: Imaging protocol: Diagnostic computed tomography of the chest with contrast. Radiation optimization: All CT scans at this facility use at least one of these dose optimization techniques: automated exposure control; mA and/or kV adjustment per patient size (includes targeted exams where dose is matched to clinical indication); or iterative reconstruction. Contrast material: [id number]; Contrast volume: 100 ml; Contrast route: INTRAVENOUS (IV); COMPARISON: CR XR chest 1V portable [id number] 04/19/2025 2:24 PM RADIATION DOSE METRICS: Total DLP (mGy-cm): 705.33 FINDINGS: Thyroid: Thyroid gland appears unremarkable. Trachea: Trachea is midline in position. Central airways are clear. Lungs: Moderate scattered centrilobular emphysematous changes present throughout the right and left upper lobe. Pleural thickening and scarring is present at the right and left lung apex. Paraseptal emphysematous changes are present within the superior aspect of the right and left upper lobe. 3 mm nodule within the anterior left upper lobe (image 16 of series 4). 7 mm lobulated pleural-based nodule at the left lung base (image 60 of series 4). This has not significantly changed 4 mm calcified granuloma within the periphery of the left lower lobe. This is unchanged. This is benign.. Patchy ground-glass airspace opacity and atelectatic changes present within the posterior aspect of the right lower lobe. 4 mm calcified granuloma along the major fissure within the anterior right lower lobe (image 45 of series 4). Peripheral 3 mm subpleural nodule within the right upper lobe (image 34 of series 4). Pleural spaces: Moderate right pleural effusion. Heart: Borderline cardiomegaly. Mild four-chamber dilatation. No pericardial effusion. Ntopvejc-[id number]-cnlac amount of dense coronary artery calcifications are present. Lymph nodes: There are no enlarged supraclavicular lymph nodes. There are no enlarged or suspicious pretracheal or paratracheal lymph nodes. There is mild fullness of the subcarinal lymph nodes. Fullness of the intrapulmonary lymphoid tissue at the right and left hilum. Enlarged right hilar lymph node measures 1.4 x 1.9 cm. Vasculature: Normal caliber of the ascending and descending thoracic aorta. No evidence for dissection. Moderate atherosclerotic plaque at the aortic arch. Scattered atherosclerotic plaque along the descending thoracic aorta. Main pulmonary artery is normal in caliber. No central pulmonary embolism. This exam is not optimized to evaluate for pulmonary embolism. Bones/joints: There are no suspicious lytic or sclerotic bone lesions. No acute fracture involving the thoracic vertebral bodies. Multilevel degenerative changes are present throughout the thoracic spine. Osteoarthritic changes are present at the right and left glenohumeral joint. Soft tissues: No axillary mass or lymphadenopathy. (Reference: Gabriel) 4. Heavy dense coronary artery calcifications are present. Borderline cardiomegaly. Mild four-chamber dilatation. Normal caliber of the ascending and descending thoracic aorta. No evidence for dissection. COMMENTS: The presence of pulmonary emphysema on CT is an independent risk factor for lung cancer. In the absence of a history or active diagnosis of lung cancer, it is recommended that this patient with emphysema be evaluated for enrollment in a low dose CT lung cancer screening program. REFERENCES: Gabriel Aviles, et al. Guidelines for Management of Incidental Pulmonary Nodules Detected on CT Images: From the Fleischner Society 2017. Radiology. 2017;284(1):228-243. PROCEDURE INFORMATION: Exam: CT Abdomen And Pelvis With Contrast Exam date and time: 04/19/2025 4:03 PM Age: 75 years old Clinical indication: Abdominal pain; Sternal or substernal pain; PT reports sunsternal chest pain that has been going on awhile but significantly worsened this am. PT also C/O increased weakness and tingling sensation on bilateral lower and upper extremities; Additional info: Cp/sob, epigastric tenderness, elevated bili, cxr findings TECHNIQUE: Imaging protocol: Computed tomography of the abdomen and pelvis with contrast. Radiation optimization: All CT scans at this facility use at least one of these dose optimization techniques: automated exposure control; mA and/or kV adjustment per patient size (includes targeted exams where dose is matched to clinical indication); or iterative reconstruction. Contrast material: [id number]; Contrast volume: 100 ml; Contrast route: INTRAVENOUS (IV); COMPARISON: MR abdomen wo/w con* [id number] 08/14/2024 1:43 PM RADIATION DOSE METRICS: Total DLP (mGy-cm): 705.33 FINDINGS: Diaphragm: No large hiatal hernia. Liver: Abnormal heterogeneous enhancement is present throughout the liver. Liver appears mottled. Geographic areas of heterogeneous enhancement and scattered hypodensities are present within the right lobe of the liver. A portion of the liver surface appears slightly nodular. Gallbladder and biliary ducts: The gallbladder is unremarkable. No biliary ductal dilatation. Common bile duct appears dilated measuring up to 8 mm in greatest diameter. This is not appear changed. No opaque stone or sludge within the common bile duct. Pancreas: Pancreas appears atrophic. No suspicious mass or lesion within the pancreas. Spleen: The spleen is unremarkable. Adrenal glands: The adrenal glands are unremarkable. Kidneys and ureters: Right kidney is unremarkable as visualized. No mass or stone seen. No hydronephrosis. Left kidney is unremarkable as visualized. No mass or stone seen. No hydronephrosis. The ureters appear unremarkable. Stomach and bowel: Stomach is predominantly decompressed. Lack of oral contrast limits evaluation. Apparent thickening of the gastric mucosa which may be secondary to underdistention. Small bowel loops are normal in caliber. No evidence of a small bowel obstruction. Large amount of stool is present throughout the colon in keeping with constipation. No evidence for acute colitis. Appendix: The appendix is not well visualized. Presumed small appendix appears unremarkable. No secondary signs for acute appendicitis. Intraperitoneal space: No significant peritoneal free fluid. No free peritoneal air. There is diffuse stranding throughout the mesenteric fat within the abdomen and stranding within the pelvic fat which is somewhat nonspecific. Vasculature: No infrarenal abdominal aortic aneurysm. Peripheral calcified plaque along the length of the infrarenal abdominal aorta. Major branch vessels are patent. Iliac arteries are patent. Peripheral calcified plaque along the iliac arteries. Lymph nodes: There are no enlarged or suspicious intra-abdominal, pelvic or retroperitoneal lymph nodes. Urinary bladder: Bladder is markedly distended. No bladder wall nodularity or bladder calculus. Reproductive: Heterogeneous appearance of the prostate which is nonspecific. Seminal vesicles appear unremarkable. Bones/joints: Postsurgical changes are present from prior fixation of a right intertrochanteric fracture. Osteoarthritic changes are present at the right and left hip joint. No suspicious lytic or sclerotic bone lesion. No acute fracture involving the lumbar vertebral bodies or pelvis. Mild levoscoliosis centered within the mid lumbar spine. Multilevel degenerative changes are present throughout the spine. Mild spinal canal narrowing at L2-L3. Moderate spinal canal stenosis at L3-L4. Multilevel degenerative facet arthropathy. Soft tissues: Mild subcutaneous edema is present along the lower abdominal wall and overlying the pelvis. No focal fluid collection. Small periumbilical hernia containing fat. No large ventral hernia. CT/CT chest abdpel w/*[id number] IMPRESSION: 1. Moderate right pleural effusion. 2. Centrilobular and paraseptal emphysematous changes are present bilaterally. 3. There are a few scattered pulmonary nodules within the right and left lung as described. Largest measures up to 7 mm. For patients at low risk (minimal or absent history of smoking and of other known risk factors), recommend CT Chest at 3-6 months, then consider CT Chest at 18-24 months. For patients at high risk (history of smoking or of other known risk factors), recommend CT Chest at 3-6 months, then CT Chest at 18-24 months. IMPRESSION: 1. Abnormal heterogeneous enhancement is present throughout the liver. Liver appears mottled. Geographic areas of heterogeneous enhancement and scattered hypodensities are present within the right lobe of the liver. A portion of the liver surface appears slightly nodular. Please correlate with any history of cirrhosis. Infiltrative process of the liver is not excluded. Continued surveillance is recommended. Follow-up MRI of the liver should be considered. 2. Mild dilatation of the common bile duct is unchanged. No significant intrahepatic ductal dilatation. No opaque stones or sludge within the gallbladder. 3. Large amount of stool throughout the colon in keeping with constipation. No evidence of a small bowel obstruction. No evidence for acute colitis. 4. Mild diffuse stranding is present throughout the mesenteric fat within the abdomen and pelvis. Findings are somewhat nonspecific. 5. No infrarenal abdominal aortic aneurysm. No evidence for dissection of the abdominal aorta. Major branch vessels are patent. 6. The bladder is markedly distended.
[2025-04-19] MEDS: iohexol 350 mg/mL 500 mL Btl (per mL) IV (16:09)
--- NOTE | 2025-04-19 16:14 | ECG_ITS ---
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 Measurements Intervals [place] Rate: 84 P: 0 SC: 0 QRS: 119 QRSD: 94 T: 45 QT: 371 QTc: 440 Interpretive Statements ATRIAL FIBRILLATION INCOMPLETE RIGHT BUNDLE BRANCH BLOCK [90+ ms QRS DURATION, TERMINAL R IN V1/V2, 40+ ms S IN I/aVL/V4/V5/V6] POSSIBLE RIGHT VENTRICULAR HYPERTROPHY [SOME/ALL OF: PROMINENT R IN V1, LATE TRANSITION, RAD, ELSA, SSS] SEPTAL MYOCARDIAL INFARCTION , OF INDETERMINATE AGE [40+ ms Q WAVE IN V1/V2] Compared to ECG 04/19/2025 14:27:18 Incomplete right bundle-branch block now present Myocardial infarct finding still present Electronically Signed On 04-21-2025 12:10:06 CDT by Osmel Walker M.D. [id number] [id number]
--- NOTE | 2025-04-19 16:32 | PC.NURSE ---
pt bp 166/116, nitro tab given for chest pressure.
[2025-04-19 17:37] LABS: Troponin 5 2HR 29.32 ng/L (0-15); Troponin 5 2HR Delta -12.68 ABS# (0-10)
--- NOTE | 2025-04-19 18:00 | PC.NURSE ---
Pt requesting food, pt daughter present states that pt is diabetic and has not ate today, Radha varmaayed pt to eat food, pt taken sandwich, pudding and water, pt BG 110.
[2025-04-19 18:12] LABS: NT Pro B Type Natriuretic Pept 1491 pg/mL (0-450); Procalcitonin 0.06 ng/mL (0-0.5)
--- NOTE | 2025-04-19 18:24 | USCV_ITS ---
Caleb Rogers Age: 75 Gender: M : 1950 Exam Date: 04/19/2025 18:48 Ordering Phys: Morris Bruno MD Technologist: ALYSSA Exam Location: [facility] [place] Indication: CP, SOB, long-term smoker, continues smoking, history of Afib, DM2, HL BP: 154 / 102 HR: 92 Rhythm: Atrial fibrillation Technical Quality: Adequate MEASUREMENTS (Male / Female) Normal Values 2D ECHO LV Diastolic Diameter PLAX 3.0 cm 4.2 - 5.9 / 3.9 - 5.3 cm IVS Diastolic Thickness 1.7 cm 0.6 - 1.0 / 0.6 - 0.9 cm IVS Systolic Thickness 1.9 cm LVPW Diastolic Thickness 1.4 cm 0.6 - 1.0 / 0.6 - 0.9 cm LVPW Systolic Thickness 1.9 cm LVOT Diameter 2.0 cm LV Ejection Fraction 2D Teich 78.3 % LV Ejection Fraction MOD 4C 76.1 % LV Ejection Fraction MOD 2C 77.0 % LV Ejection Fraction 2C AL 79.7 % LA Diameter 4.3 cm Aorta at Sinotubular Diameter 3.6 cm IVC Diameter 2.2 cm M-MODE LA Ao Ratio MM 1.5 AV Cusp Separation MM 2.3 cm DOPPLER AV Peak Velocity 104.0 cm/s LVOT Peak Velocity 62.0 cm/s AV Area Cont Eq vti 2.1 cm squared AV Area Cont Eq pk 1.8 cm squared MV Peak Velocity 143.0 cm/s MV Area PHT 5.1 cm squared Mitral E to A Ratio 91.0 TV Peak Velocity 314.3 cm/s TR Peak Velocity 319.0 cm/s TR Peak Gradient 40.7 mmHg TV Peak E Velocity 65.0 cm/s PV Peak Velocity 84.0 cm/s FINDINGS Left Ventricle Normal left ventricular size, systolic function and wall thickness, with no regional wall motion abnormalities. Left ventricular ejection fraction is estimated at 60%. Grade II/IV diastolic dysfunction, moderately elevated filling pressures. Right Ventricle Normal right ventricular size and systolic function. Right Atrium Moderately increased right atrial size. Left Atrium Moderately increased left atrial size. IA Septum Normal appearance of the interatrial septum. Mitral Valve Structurally normal mitral valve. No mitral valve stenosis. Moderate mitral valve regurgitation. Aortic Valve Normal aortic valve structure. No aortic valve stenosis or regurgitation. Tricuspid Valve Structurally normal tricuspid valve. Moderate tricuspid valve regurgitation. Pulmonic Valve Mild pulmonary valve regurgitation. Pericardium No pericardial effusion. Aorta Normal diameter of the aortic root and ascending thoracic aorta. IVC Normal IVC diameter. CONCLUSIONS Normal left ventricular size, systolic function and wall thickness, with no regional wall motion abnormalities. Left ventricular ejection fraction is estimated at 60%. Grade II/IV diastolic dysfunction, moderately elevated filling pressures. Moderate biatrial enlargement Moderate mitral regurgitation Moderate tricuspid valve regurgitation Mild pulmonic valve regurgitation There is no pericardial effusion. Right atrial pressure is around 5 mm of mercury. Anushka Ordoñez MD (Electronically Signed) Final Date: 20 April 2025 15:13 S
--- NOTE | 2025-04-19 18:25 | PM.HP ---
Providers/Chief Complaint Primary Care Provider: ADAIR Blue Chief Complaint: chest pain History of Present Illness Caleb Rogers is a 75 year old male with a past medical history of current smoker, atrial fibrillation on Eliquis, history of type 2 diabetes mellitus, hyperlipidemia, who presents to [facility] for chest pain. Currently patient is alert oriented x 3, following all commands, he reports that he has had substernal chest pain in a bandlike fashion across the anterior chest, radiating down both arms associate with diaphoresis, shortness of breath. He also reports increased shortness of breath, increased shortness of breath with exertion with orthopnea paroxysmal nocturnal dyspnea. He does report that about a week ago he was in an ER in [facility], in which he was having chest discomfort his troponins were elevated they recommended for him to be watched overnight as they were trying to transfer him to a tertiary level center but he left AGAINST MEDICAL ADVICE. Currently he denies any active chest pain, Review of Systems Const: Denies: fever(s) or chills Card: Reports: chest pain Resp: Reports: dyspnea Medications/Allergies Home Medications ?Medication ?Instructions ?Recorded ?Confirmed ?Last Taken ?Type diabetic shoes with 3 inserts #1 ea 09/16/23 02/21/25 Unknown Rx flash glucose scanning reader #1 ea 10/25/23 02/21/25 Unknown Rx (FreeStyle Kalyani 2 [place]) fast form cockup splint right wrist #1 ea 01/19/24 02/21/25 Unknown Rx atorvastatin 40 mg tablet 40 mg PO DAILY #90 tabs 02/09/24 02/21/25 Unknown Rx flash glucose sensor (FreeStyle #6 ea 02/09/24 02/21/25 Unknown Rx Kalyani 2 Sensor kit) PTB - AFO left #1 ea 02/11/24 02/21/25 Unknown Rx celecoxib 100 mg capsule (Celebrex) 100 mg PO BID 90 days #180 caps 02/16/24 02/21/25 Unknown Rx custom 3010 inserts with right 1st #1 ea 12/06/24 02/21/25 Unknown Rx met cut out Allergies Allergy/AdvReac Type Severity Reaction Status Date / Time No Known Allergies Allergy Verified 02/07/25 11:37 PFSH Acute PFSH: Medical History Closed fracture of right distal radius Social History Smoking and tobacco/nicotine status: current every day tobacco/nicotine user Vitals/I&O/Wt Last Vital Signs Temp 97.4 F L 04/19/25 12:39 Pulse 88 04/19/25 18:20 Resp 14 04/19/25 12:39 BP 154/102 04/19/25 17:00 Pulse Ox 95 04/19/25 18:20 O2 Del Method Room Air 04/19/25 18:20 Weight last 48 hrs Weight 77.111 kg Physical Exam Const: COMMON NORMALS: no acute distress and patient oriented x3 HENMT: COMMON NORMALS: normocephalic HEAD & SCALP: normocephalic Eye: COMMON NORMALS: Equal, round and reactive pupils present Resp: COMMON NORMALS: normal respiratory effort, No retractions, No use of accessory muscles and clear to auscultation bilaterally AUSCULTATION: clear to auscultation bilaterally Cardio: COMMON NORMALS: regular rate, regular rhythm, S1 normal heart sound present and S2 normal heart sound present RATE: regular rate RHYTHM: regular rhythm HEART SOUNDS: S1 normal heart sound present and S2 normal heart sound present GI: COMMON NORMALS: Normal to inspection, nondistended, normoactive bowel sounds present, Soft to palpation and non-tender Extremity: COMMON NORMALS: no calf tenderness and no pedal edema Neuro: COMMON NORMALS: patient oriented x3, CN's II-XII intact bilaterally and moves all extremities Psych: COMMON NORMALS: mental status grossly normal Data 04/19/25 14:20 04/19/25 14:40 A&P Assessment and plan 1. Chest pain: 2. Hyperlipemia, mixed: 3. Type 2 diabetes mellitus: 4. NSTEMI (non-ST elevated myocardial infarction): Plan: Chest pain, NSTEMI - Serial EKGs, serial troponins, telemetry monitoring - Cardiac echo - Aspirin, statin, metoprolol heparin drip - Cardiology consulted - N.p.o. midnight Evidence of acute heart failure - Has right pleural effusion, elevated BNP, reports of shortness of breath, orthopnea, paroxysmal nocturnal dyspnea, crackles on examination, right JVD - Cardiac echo ordered Right pleural effusion - Will consider thoracentesis based on clinical progress Hyperbilirubinemia - No transaminitis -Denies history of alcoholism - Will monitor - Ferritin, iron, Type 2 diabetes mellitus, with neuropathy, low-dose on scale Right foot, calcaneal ulcer, measuring 1 x 1 cm, will consult podiatry History of atrial fibrillation - On Eliquis, he took a dose this morning will hold on heparin drip as above - Continue metoprolol History of smoking, smoking cessation counseling Full code Heparin drip for DVT prophylaxis PDMP PDMP Reviewed: Not Reviewed Attestations Medical Necessity Statement*: Patient requires hospitalization, inpatient, greater than 2 overnights, for chest pain, NSTEMI, acute heart failure Diagnoses Chest pain R07.9 Hyperlipemia, mixed E78.2 Type 2 diabetes mellitus E11.9 NSTEMI (non-ST elevated myocardial infarction) I21.4
[2025-04-19 18:51] LABS: INR 1.12 (0.8-1.2); Prothrombin Time 15.20 SECONDS (12.1-14.9)
[2025-04-19 18:52] LABS: Partial Thromboplastin Time 34.5 SECONDS (23.9-36.7)
[2025-04-19 19:04] LABS: Alcohol Level < 10 mg/dL (0-10)
[2025-04-19 19:30] LABS: Ferritin 105 ng/mL (30-400); Iron 133 ug/dL (59-158)
[2025-04-19 19:37] LABS: Estmated Average Glucose 206; Hemoglobin A1C 8.8 % (4.0-6.0)
[2025-04-19] MEDS: pantoprazole 40 mg SDV IVP (20:02)
[2025-04-19] MEDS: FUROsemide 10 mg/mL SDV 4mL 20 MG IVP (20:02)
--- NOTE | 2025-04-19 20:14 | ECG_ITS ---
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 Measurements Intervals [place] Rate: 92 P: 0 MI: 0 QRS: 110 QRSD: 86 T: 53 QT: 365 QTc: 452 Interpretive Statements ATRIAL FIBRILLATION POSSIBLE RIGHT VENTRICULAR HYPERTROPHY [SOME/ALL OF: PROMINENT R IN V1, LATE TRANSITION, RAD, ELSA, SSS] SEPTAL MYOCARDIAL INFARCTION , PROBABLY OLD [40+ ms Q WAVE IN V1/V2] No previous ECG available for comparison Electronically Signed On 04-24-2025 19:50:19 CDT by Aron Yates M.D. [id number]
[2025-04-19 20:17] LABS: Cholesterol 124 mg/dL (0-200); HDL Cholesterol 64 mg/dL (60-100); HIV 1 & 2 Antigen Non-Reactive (Non-Reactiv); Thyroid Stimulating Hormone 1.03 uIU/mL (0.27-4.20); Triglycerides 71 mg/dL (0-150)
[2025-04-19 21:41] LABS: Troponin 5 6HR 45.35 ng/L (0-15); Troponin 5 6HR Delta 3.35 ng/L (0-12)
[2025-04-19 21:42] LABS: Lactic Sepsis W/Reflex 1.6 mmol/L (0.5-2.2)
[2025-04-19 22:23] LABS: Glucose Urine UA 3+ (Normal); Nitrate Urine Negative (Negative); Specific Gravity, Urine 1.016 (1.005-1.030)
[2025-04-19 22:28] LABS: Add Urine Microscopic? YES
[2025-04-19 22:30] LABS: PCP Screen Urine Negative (Negative)
[2025-04-19 22:53] LABS: Hepatitis A Antibody IgM Non-Reactive (Nonreactive); Hepatitis B Surface Antigen Non-Reactive (Nonreactive)
[2025-04-20] VITALS (7 sets, daily range): BP systolic 104–145; BP diastolic 46–93; PULSE 80–98; RESP 14–18; TEMP 36.3–36.7; O2SAT 93–96; BMI 18.6
[2025-04-20 03:32] LABS: Hematocrit 45.7 % (37-53); Hemoglobin 15.00 g/dL (11.27-16.99); Mean Corpuscular HGB Conc 32.8 g/dL (30-55); Mean Corpuscular Hemoglobin 33.2 pg (27-33); Mean Corpuscular Volume 101.1 fl (82-101); Nucleated Red Blood Cells % 0 %; Platelet Count 148 10^3/cmm (157-399); Red Blood Count 4.52 10^6/uL (3.85-5.65); White Blood Count 5.69 10^3/uL (3.29-11.43)
[2025-04-20 04:04] LABS: Alanine Aminotransferase 19 U/L (0-41); Albumin Level 3.8 g/dL (3.5-5.2); Alkaline Phosphatase 297 U/L (40-130); Anion Gap 20.0 (5-19); Aspartate Amino Transferase 20 U/L (0-40); Blood Urea Nitrogen 31 mg/dL (8-23); Calcium 9.2 mg/dL (8.5-10.5); Carbon Dioxide 24 mmol/L (22-29); Chloride 99 mmol/L (98-107); Creatinine Clr Calc Pharmacy 70.1235; Globulin 3.2 g/dL (1.3-4.6); Glucose 198 mg/dL (65-115); Magnesium 2.2 mg/dL (1.7-2.3); Osmolality Calculated 300 mOsm/kg (285-295); Potassium 4.0 mmol/L (3.5-5.1); Sodium 139 mmol/L (136-145); Total Protein 7.0 g/dL (6.6-8.7)
[2025-04-20 04:06] LABS: NT Pro B Type Natriuretic Pept 1192 pg/mL (0-450)
[2025-04-20] MEDS: pantoprazole 40 mg SDV IVP ×2 (04:22→17:33)
[2025-04-20] MEDS: morphine 4 mg/mL SDV 1 mL 2 MG IVP ×2 (04:30→20:51)
--- NOTE | 2025-04-20 11:12 | PC.SOCIAL ---
IMM Updated Updated pt on IMM. No questions voiced. Provided pt a copy. Initialed, dated, & timed a copy & placed in chart.
[2025-04-20] MEDS: insulin glargine 100 units/1 mL 15 UNIT SUBCUT (13:16)
[2025-04-20] MEDS: FUROsemide 10 mg/mL SDV 2mL 20 MG IVP (13:17)
--- NOTE | 2025-04-20 13:54 | P.PN_ITS ---
Subjective 2 Subjective: Patient was seen this morning, currently alert oriented x 3, following all commands, no chest pain overnight, shortness of breath is improving Vitals/I&O/Wt Last Vital Signs Temp 97.6 F 04/20/25 11:51 Pulse 98 04/20/25 11:51 Resp 15 04/20/25 11:51 BP 123/77 04/20/25 11:51 Pulse Ox 94 04/20/25 11:51 O2 Del Method Room Air 04/20/25 11:51 04/19/25 04/20/25 04/20/25 22:59 06:59 14:59 Intake Total 240 / 240 Output Total 400 / 400 Balance -400 / -400 240 / 240 Weight last 48 hrs Weight 69.2 kg Weight 71 kg Weight 77.111 kg Physical Exam 2 Const: COMMON NORMALS: no acute distress and patient oriented x3 Resp: COMMON NORMALS: normal respiratory effort, No retractions, No use of accessory muscles and clear to auscultation bilaterally AUSCULTATION: clear to auscultation bilaterally Cardio: COMMON NORMALS: regular rate, regular rhythm, S1 normal heart sound present and S2 normal heart sound present RATE: regular rate RHYTHM: r egular rhythm HEART SOUNDS: S1 normal heart sound present and S2 normal heart sound present GI: COMMON NORMALS: Normal to inspection, nondistended, normoactive bowel sounds present and non-tender Extremity: COMMON NORMALS: no calf tenderness and no pedal edema Neuro: COMMON NORMALS: patient oriented x3 Psych: COMMON NORMALS: mental status grossly normal Data 04/20/25 02:56 04/20/25 02:56 A&P Assessment and plan 1. Chest pain: 2. Hyperlipemia, mixed: 3. Type 2 diabetes mellitus: 4. NSTEMI (non-ST elevated myocardial infarction): Plan: Chest pain, NSTEMI - Serial EKGs, serial troponins, telemetry monitoring - Cardiac echo pending - Aspirin, statin, metoprolol, therapeutic Lovenox - Cardiology consulted Evidence of acute heart failure - Has right pleural effusion, elevated BNP, reports of shortness of breath, orthopnea, paroxysmal nocturnal dyspnea, crackles on examination, right JVD - Cardiac echo ordered - IV Lasix Right pleural effusion - Will consider thoracentesis based on clinical progress Hyperbilirubinemia - No transaminitis -Denies history of alcoholism - Will monitor - Ferritin, iron, acute hep panel within normal limits Type 2 diabetes mellitus, with neuropathy, moderate dose insulin sliding scale, glargine 15 units subcu a.m. Right foot, calcaneal ulcer, measuring 1 x 1 cm, will consult podiatry History of atrial fibrillation - On Eliquis, he took a dose this morning will hold on heparin drip as above - Continue metoprolol History of smoking, smoking cessation counseling Full code Heparin drip for DVT prophylaxis PDMP PDMP Reviewed: Not Reviewed Attestations 2 Medical Necessity Statement*: Patient requires hospitalization for chest pain, acute heart failure, right pleural effusion, Diagnoses Chest pain R07.9 Hyperlipemia, mixed E78.2 Type 2 diabetes mellitus E11.9 NSTEMI (non-ST elevated myocardial infarction) I21.4
--- NOTE | 2025-04-20 15:14 | PM.CONSULT ---
Providers/Reason For Consult Consulting Physician/Specialty*: Anushka Ordoñez MD Reason for Consult*: Chest pain/shortness of breath/atrial fibrillation Requesting Physician: Dr. Helen Caceres Attending Physician: Morris Bruno MD Primary Care Provider: ADAIR Blue History of Present Illness History of Present Illness Caleb Rogers is a 75 year old male past medical history significant for history of chronic atrial fibrillation rate controlled, diabetes mellitus, history of smoking, history of cancer in the family presented to the hospital ER with worsening of shortness of breath chest pain on mild exertion he was noted to be in A-fib but with controlled heart rate. Patient says he is struggling with chest pain prolonged. Time and putting it off he has been to [place] emergency department for the same reason but left AMA however he noticed that he remained so fatigued and short of breath that he cannot function anymore therefore decided to come to the hospital. Twelve-lead EKG was suggestive of atrial fibrillation but no significant ST changes. Medications/Allergies Home Medications ?Medication ?Instructions ?Recorded ?Confirmed ?Last Taken ?Type diabetic shoes with 3 inserts #1 ea 09/16/23 04/19/25 Unknown Rx flash glucose scanning reader #1 ea 10/25/23 04/19/25 Unknown Rx (FreeStyle Kalyani 2 [place]) fast form cockup splint right wrist #1 ea 01/19/24 04/19/25 Unknown Rx atorvastatin 40 mg tablet 40 mg PO DAILY #90 tabs 02/09/24 04/19/25 Unknown Rx flash glucose sensor (FreeStyle #6 ea 02/09/24 04/19/25 Unknown Rx Kalyani 2 Sensor kit) PTB - AFO left #1 ea 02/11/24 04/19/25 Unknown Rx celecoxib 100 mg capsule (Celebrex) 100 mg PO BID 90 days #180 caps 02/16/24 04/19/25 Unknown Rx custom 3010 inserts with right 1st #1 ea 12/06/24 04/19/25 Unknown Rx met cut out apixaban 5 mg tablet (Eliquis) 5 mg PO BID 04/19/25 04/19/25 Unknown History fluticasone fur. 100 mcg-umeclid 100 inh inhalation DAILY 04/19/25 04/19/25 Unknown History 62.5 mcg-vilant 25 mcg inhalat.powder (Trelegy Ellipta) gabapentin 300 caplet PO TID Unobtainable 04/19/25 04/19/25 Unknown History hydrocodone 7.5 mg-acetaminophen 7.5 tab PO Q6H PRN pain 04/19/25 04/19/25 Unknown History 325 mg tablet insulin glargine 100 unit/mL (3 23 unit SUBCUT QAM 04/19/25 04/19/25 Unknown History mL) subcutaneous pen (Lantus Solostar U-100 Insulin) insulin lispro 100 unit/mL See Protocol SUBCUT BIDWM 04/19/25 04/19/25 Unknown History subcutaneous pen (Humalog KwikPen (U-100) Insulin) metoprolol succinate 25 mg 25 mg PO DAILY 04/19/25 04/19/25 Unknown History tablet,extended release 24 hr ropinirole 2 mg tablet 2 mg PO BEDTIME 04/19/25 04/19/25 Unknown History trazodone 100 mg tablet 100 mg PO BEDTIME PRN insomnia 04/19/25 04/19/25 Unknown History Allergies Allergy/AdvReac Type Severity Reaction Status Date / Time No Known Allergies Allergy Verified 02/07/25 11:37 Current Medications Generic Name Dose Route Start Last Admin Trade Name Freq PRN Reason Stop Dose Admin Aspirin 81 mg 04/19/25 19:22 04/20/25 04:22 Aspirin 81 Mg Ec Tablet PO 81 mg DAILY REDDY Administration Atorvastatin Calcium 40 mg 04/19/25 19:22 04/20/25 04:22 Atorvastatin 40 Mg Tablet PO 40 mg DAILY REDDY Administration Enoxaparin Sodium 80 mg 04/19/25 19:30 04/20/25 09:03 Enoxaparin 80 Mg/0.8 Ml Syringe SUBCUT 80 mg Q12H REDDY Administration Gabapentin 300 mg 04/20/25 00:10 04/20/25 12:26 Gabapentin 300 Mg Capsule PO 300 mg TID REDDY Administration Insulin Human Lispro 0 unit 04/20/25 08:00 04/20/25 11:55 Insulin Lispro 100 Unit/1 Ml SUBCUT 8 unit TIDWM REDDY Administration Protocol Metoprolol Tartrate 12.5 mg 04/19/25 19:22 04/20/25 04:22 Metoprolol Tartrate 25 Mg Tablet PO 12.5 mg Q12H REDDY Administration Morphine Sulfate 2 mg 04/19/25 19:22 04/20/25 04:30 Morphine 4 Mg/Ml Sdv 1 Ml IVP 2 mg Q4H PRN Administration SEVERE PAIN Pantoprazole Sodium 40 mg 04/19/25 19:22 04/20/25 04:22 Pantoprazole 40 Mg Sdv IVP 40 mg Q12H REDDY Administration Ropinirole HCl 2 mg 04/20/25 00:30 04/20/25 00:42 Ropinirole 2 Mg Tablet PO 2 mg BEDTIME REDDY Administration PFSH Acute PFSH: Medical History (Updated 04/20/25 @ 16:08 by Anushka Ordoñez MD) Diabetes Atrial fibrillation Closed fracture of right distal radius Social History Smoking and tobacco/nicotine status: current every day tobacco/nicotine user Vitals/I&O/Wt Last Vital Signs Temp 97.6 F 04/20/25 11:51 Pulse 98 04/20/25 11:51 Resp 15 04/20/25 11:51 BP 123/77 04/20/25 11:51 Pulse Ox 94 04/20/25 11:51 O2 Del Method Room Air 04/20/25 11:51 04/20/25 04/20/25 04/20/25 06:59 14:59 22:59 Intake Total 240 / 240 Output Total 400 / 400 Balance -400 / -400 240 / 240 Weight last 48 hrs Weight 152 lb 8.958 oz Weight 156 lb 8.451 oz Weight 170 lb Physical Exam Const: OTHER: GENERAL: Patient is alert, awake and oriented x3. HEART: Regular S1 and S2. No murmur, rub or gallop. LUNGS: Clear to auscultate bilaterally. CENTRAL NERVOUS SYSTEM: Grossly nonfocal. EXTREMITIES: Lower extremities with out edema bilaterally. Data 04/20/25 02:56 04/20/25 02:56 A&P Assessment and plan 1. Chest pain: 2. Atrial fibrillation: 3. Diabetes: Plan: Patient presentation is suggestive of unstable angina. Since he was on apixaban because of atrial fibrillation we will recommend stopping it and proceed with left heart cath after 36 to 48 hours however if any dynamic EKG changes or ongoing chest pain with ischemia May can adapt early invasive strategy. Continue aspirin and statin beta-lori Patient may can be switched to heparin or Lovenox. If switch to Lovenox then stop Lovenox 12 hours before the procedure. Patient will be scheduled tentatively for Wednesday morning he will be n.p.o. after Wednesday midnight. Diabetes control as per medicine PDMP PDMP Reviewed: Not Reviewed Coding Level of Care Code Acute Code for [facility] Fwd Diagnoses Chest pain R07.9 Atrial fibrillation I48.91 Diabetes E11.9
[2025-04-20] MEDS: polyethylene glycol 3350 Pkt 17 gm PO (15:30)
[2025-04-21] VITALS (8 sets, daily range): BP systolic 96–137; BP diastolic 57–99; PULSE 75–93; RESP 14–23; TEMP 36.2–36.6; O2SAT 92–98
[2025-04-21 05:07] LABS: Hematocrit 45.6 % (37-53); Hemoglobin 15.00 g/dL (11.27-16.99); Mean Corpuscular HGB Conc 32.9 g/dL (30-55); Mean Corpuscular Hemoglobin 33.3 pg (27-33); Mean Corpuscular Volume 101.3 fl (82-101); Nucleated Red Blood Cells % 0 %; Platelet Count 144 10^3/cmm (157-399); Red Blood Count 4.50 10^6/uL (3.85-5.65); White Blood Count 6.11 10^3/uL (3.29-11.43)
[2025-04-21] MEDS: pantoprazole 40 mg SDV IVP (05:16)
[2025-04-21 05:43] LABS: Alanine Aminotransferase 18 U/L (0-41); Albumin Level 3.7 g/dL (3.5-5.2); Alkaline Phosphatase 280 U/L (40-130); Anion Gap 16.0 (5-19); Aspartate Amino Transferase 21 U/L (0-40); Blood Urea Nitrogen 40 mg/dL (8-23); Calcium 8.9 mg/dL (8.5-10.5); Carbon Dioxide 28 mmol/L (22-29); Chloride 98 mmol/L (98-107); Creatinine Clr Calc Pharmacy 52.0000; Globulin 3.0 g/dL (1.3-4.6); Glucose 143 mg/dL (65-115); Magnesium 2.3 mg/dL (1.7-2.3); Osmolality Calculated 298 mOsm/kg (285-295); Potassium 4.0 mmol/L (3.5-5.1); Sodium 138 mmol/L (136-145); Total Protein 6.7 g/dL (6.6-8.7)
[2025-04-21] MEDS: insulin glargine 100 units/1 mL 20 UNIT SUBCUT (05:49)
--- NOTE | 2025-04-21 08:03 | PM.CONSULT ---
Providers/Reason For Consult Consulting Physician/Specialty*: Dr. Orlando Rose, D.P.M./podiatry Reason for Consult*: Right foot wound Attending Physician: Morris Bruno MD Primary Care Provider: ADAIR Blue History of Present Illness History of Present Illness Caleb Rogers is a 75 year old male currently admitted to cardiac stepdown unit. Patient has history of right foot ulceration. Has seen podiatry in the outpatient setting. Regularly sees Dr. Lundberg at wound care clinic in [place]. Was scheduled with Dr. Lainez for surgery this coming Wednesday to offload first metatarsal head region. Podiatry was consulted to evaluate right foot and provide further recommendations. Review of Systems General: Reports: 10 or more systems reviewed and unremarkable except in HPI and below Const: Denies: fever(s), chills, fatigue or malaise Eyes: Denies: change in vision ENMT: Denies: throat pain Card: Reports: swelling of feet/ankles; Denies: chest pain or palpitations Resp: Denies: dyspnea GI: Denies: abdominal pain, nausea or vomiting Musc: Reports: extremity swelling; Denies: limited range of motion Skin/Breast: Reports: dry skin, nail changes and change in hair Neuro: Reports: numbness in extremities and sensory changes Medications/Allergies Home Medications ?Medication ?Instructions ?Recorded ?Confirmed ?Last Taken ?Type diabetic shoes with 3 inserts #1 ea 09/16/23 04/19/25 Unknown Rx flash glucose scanning reader #1 ea 10/25/23 04/19/25 Unknown Rx (FreeStyle Kalyani 2 [place]) fast form cockup splint right wrist #1 ea 01/19/24 04/19/25 Unknown Rx atorvastatin 40 mg tablet 40 mg PO DAILY #90 tabs 02/09/24 04/19/25 Unknown Rx flash glucose sensor (FreeStyle #6 ea 02/09/24 04/19/25 Unknown Rx Kalyani 2 Sensor kit) PTB - AFO left #1 ea 02/11/24 04/19/25 Unknown Rx celecoxib 100 mg capsule (Celebrex) 100 mg PO BID 90 days #180 caps 02/16/24 04/19/25 Unknown Rx custom 3010 inserts with right 1st #1 ea 12/06/24 04/19/25 Unknown Rx met cut out apixaban 5 mg tablet (Eliquis) 5 mg PO BID 04/19/25 04/19/25 Unknown History fluticasone fur. 100 mcg-umeclid 100 inh inhalation DAILY 04/19/25 04/19/25 Unknown History 62.5 mcg-vilant 25 mcg inhalat.powder (Trelegy Ellipta) gabapentin 300 caplet PO TID Unobtainable 04/19/25 04/19/25 Unknown History hydrocodone 7.5 mg-acetaminophen 7.5 tab PO Q6H PRN pain 04/19/25 04/19/25 Unknown History 325 mg tablet insulin glargine 100 unit/mL (3 23 unit SUBCUT QAM 04/19/25 04/19/25 Unknown History mL) subcutaneous pen (Lantus Solostar U-100 Insulin) insulin lispro 100 unit/mL See Protocol SUBCUT BIDWM 04/19/25 04/19/25 Unknown History subcutaneous pen (Humalog KwikPen (U-100) Insulin) metoprolol succinate 25 mg 25 mg PO DAILY 04/19/25 04/19/25 Unknown History tablet,extended release 24 hr ropinirole 2 mg tablet 2 mg PO BID PRN Restless Leg(S) 04/19/25 04/20/25 Unknown History trazodone 100 mg tablet 100 mg PO BEDTIME PRN insomnia 04/19/25 04/19/25 Unknown History Allergies Allergy/AdvReac Type Severity Reaction Status Date / Time No Known Allergies Allergy Verified 02/07/25 11:37 Current Medications Generic Name Dose Route Start Last Admin Trade Name Freq PRN Reason Stop Dose Admin Aspirin 81 mg 04/19/25 19:22 04/21/25 05:15 Aspirin 81 Mg Ec Tablet PO Not Given DAILY [facility] Atorvastatin Calcium 40 mg 04/19/25 19:22 04/21/25 05:15 Atorvastatin 40 Mg Tablet PO Not Given DAILY REDDY Bisacodyl 10 mg 04/20/25 13:55 04/21/25 05:15 Bisacodyl 5 Mg Tablet PO Not Given DAILY [facility] Enoxaparin Sodium 80 mg 04/19/25 19:30 04/20/25 20:49 Enoxaparin 80 Mg/0.8 Ml Syringe SUBCUT 80 mg Q12H REDDY Administration Gabapentin 300 mg 04/20/25 00:10 04/21/25 05:15 Gabapentin 300 Mg Capsule PO Not Given TID REDDY Insulin Glargine 20 unit 04/21/25 05:00 04/21/25 05:49 Insulin Glargine 100 Units/1 Ml SUBCUT 20 unit QAM REDDY Administration Insulin Human Lispro 0 unit 04/20/25 08:00 04/20/25 17:32 Insulin Lispro 100 Unit/1 Ml SUBCUT 14 unit TIDWM REDDY Administration Protocol Metoprolol Tartrate 12.5 mg 04/19/25 19:22 04/21/25 05:15 Metoprolol Tartrate 25 Mg Tablet PO Not Given Q12H REDDY Morphine Sulfate 2 mg 04/19/25 19:22 04/20/25 20:51 Morphine 4 Mg/Ml Sdv 1 Ml IVP 2 mg Q4H PRN Administration SEVERE PAIN Pantoprazole Sodium 40 mg 04/19/25 19:22 04/21/25 05:16 Pantoprazole 40 Mg Sdv IVP 40 mg Q12H REDDY Administration Polyethylene Glycol 17 gm 04/20/25 13:55 04/21/25 05:16 Polyethylene Glycol 3350 Pkt 17 Gm PO Not Given DAILY REDDY Ropinirole HCl 2 mg 04/20/25 16:41 04/20/25 17:34 Ropinirole 2 Mg Tablet PO 2 mg BID PRN Administration RESTLESS LEG SYNDROME PFSH Acute PFSH: Medical History (Updated 04/21/25 @ 17:53 by Orlando Rose DPM) Hypertension Diabetes Atrial fibrillation Closed fracture of right distal radius Social History Smoking and tobacco/nicotine status: current every day tobacco/nicotine user Vitals/I&O/Wt Last Vital Signs Temp 97.4 F L 04/21/25 07:18 Pulse 85 04/21/25 07:18 Resp 18 04/21/25 07:18 BP 135/90 04/21/25 07:18 Pulse Ox 92 04/21/25 07:18 O2 Del Method Room Air 04/21/25 07:18 04/20/25 04/21/25 04/21/25 22:59 06:59 14:59 Intake Total 480 / 720 Output Total 0 / 0 Balance 480 / 720 Weight last 48 hrs Weight 154 lb 12.232 oz Weight 152 lb 8.958 oz Weight 156 lb 8.451 oz Weight 170 lb Physical Exam Narrative: BELOW IS A FOCUSED LOWER EXTREMITY EXAM GENERAL: A&O x 3 VASCULAR: DP/PT pulses palpable 2/4 with CFT intact, <3seconds to distal digits DERMATOLOGICAL: Preulcerative hyperkeratotic lesion plantar aspect right first metatarsal head. No underlying fluctuance or signs of deep space abscess. No open wound. MUSCULOSKELETAL: Cavus foot type NEUROLOGICAL: Neurological sensation to the affected foot and ankle is present through L4-S1 dermatomes with no hyper/hypoesthesias, negative Tinel or Valleix's sign Data 04/21/25 04:47 04/21/25 04:47 A&P Assessment and plan 1. Type 2 diabetes mellitus: 2. Pre-ulcerative calluses: Plan: Preulcerative callus right foot No surgical intervention by podiatry during this admission. Stressed importance of avoiding barefoot walking and wearing supportive shoes. Follow-up with Dr. Evans at wound care clinic and Dr. Lainez, pharmaceutical sales representative in [place] for continued treatment. Okay to discharge home from podiatry standpoint. Podiatry will sign off. Please reconsult if needed. PDMP PDMP Reviewed: Not Reviewed Coding Level of Care Code Acute Code for [facility] Fwd Diagnoses Type 2 diabetes mellitus E11.9 Pre-ulcerative calluses L84
[2025-04-21 08:09] LABS: CENTROMERE B ANTIBODY <1.0 NEG AI (<1.0 NEG); JO-1 ANTIBODY <1.0 NEG AI (<1.0 NEG); RNP ANTIBODY <1.0 NEG AI (<1.0 NEG); SCL-70 ANTIBODY <1.0 NEG AI (<1.0 NEG); SS-B <1.0 NEG AI (<1.0 NEG)
[2025-04-21] MEDS: polyethylene glycol 3350 Pkt 17 gm PO ×2 (10:18→20:20)
[2025-04-21] MEDS: lactulose oral liq 20 gm/30 mL UDC PO ×2 (10:18→20:23)
--- NOTE | 2025-04-21 10:40 | P.PN_ITS ---
Subjective 2 Subjective: Seen 04/21/2025: No return of chest pain overnight. Feels mildly dizzy after standing - a symptom he has had chronically over the last couple months. Vitals/I&O/Wt Last Vital Signs Temp 97.4 F L 04/21/25 07:18 Pulse 85 04/21/25 07:18 Resp 18 04/21/25 07:18 BP 135/90 04/21/25 07:18 Pulse Ox 92 04/21/25 07:18 O2 Del Method Room Air 04/21/25 07:18 04/20/25 04/21/25 04/21/25 22:59 06:59 14:59 Intake Total 480 / 720 600 / 600 Output Total 0 / 0 Balance 480 / 720 600 / 600 Weight last 48 hrs Weight 154 lb 12.232 oz Weight 152 lb 8.958 oz Weight 156 lb 8.451 oz Weight 170 lb Physical Exam 2 Narrative: General: In no acute distress Neck: No jugular venous distention or carotid bruits Heart: irreg irreg, no murmur Lungs: Normal respiratory effort with no use of intercostal muscles, clear lungs sounds to auscultation Extremities: No lower extremity edema Neuro: Alert and oriented x 3 Data 04/22/25 02:57 04/22/25 02:57 Other data: Echo 04/19/25: Normal left ventricular size, systolic function and wall thickness, with no regional wall motion abnormalities. Left ventricular ejection fraction is estimated at 60%. Grade II/IV diastolic dysfunction, moderately elevated filling pressures. Moderate biatrial enlargement Moderate mitral regurgitation Moderate tricuspid valve regurgitation Mild pulmonic valve regurgitation There is no pericardial effusion. A&P Assessment and plan 1. Chest pain: due to ACS/NSTEMI 2. Atrial fibrillation: persistent on tele, chronic per patient Rate controlled Continue metoprolol Hold Eliquis for cath wednesday On Lovenox now 3. Diabetes: 4. NSTEMI (non-ST elevated myocardial infarction): no recurrent cp LHC once eliquis out of system scheudled for Wednesday unless needed clinically sooner continue lovenox, asa, statin, bb 5. Dizziness: possibly related to his peripheral neuropathy will check orthostatic vitals Plan: This is a note that was created on 04/21/2025 but accidentally not signed. Signed now. PDMP PDMP Reviewed: Not Reviewed Attestations 2 Medical Necessity Statement*: needs 2 more midnights of hospitalization for NSTEMI Coding Level of Care Code 33149 Diagnoses Chest pain R07.9 Atrial fibrillation I48.91 Diabetes E11.9 NSTEMI (non-ST elevated myocardial infarction) I21.4 Dizziness R42
--- NOTE | 2025-04-21 13:52 | USR_ITS ---
PROCEDURE INFORMATION: Exam: US Abdomen, Limited; Right Upper Quadrant Exam date and time: 04/21/2025 7:05 AM Age: 75 years old Clinical indication: Condition or disease; Other: Hyperbilirubinemia; Additional info: Hyperbilirubinemia, patient eating. Nurse to keep npo at midnight and will scan in the am. CR TECHNIQUE: Imaging protocol: Real time ultrasound of the abdomen with image documentation. Limited exam focused on the right upper quadrant. COMPARISON: US abdomen limited [id number] 05/02/2024 8:35 AM FINDINGS: Liver: Liver has a coarse heterogeneous echotexture. The liver measures 14 cm in length. There is hepatopetal flow within the main portal vein. Gallbladder: Normal. No gallstones. There is no gallbladder wall thickening. Biliary ducts: Normal. No stones. No dilation. Pancreas: Visualized pancreas is unremarkable. Right kidney: Right kidney measures 4.4 x 5.5 x 9.4 cm. There is no hydronephrosis. Aorta: The aorta and IVC are normal in appearance. US/US liver [id number] IMPRESSION: Heterogeneous appearance of the liver. No focal lesion identified.
--- NOTE | 2025-04-21 15:19 | P.PN_ITS ---
Vitals/I&O/Wt Last Vital Signs Temp 97.2 F L 04/21/25 11:27 Pulse 92 04/21/25 11:27 Resp 18 04/21/25 11:27 BP 121/74 04/21/25 11:27 Pulse Ox 98 04/21/25 11:27 O2 Del Method Room Air 04/21/25 11:27 04/21/25 04/21/25 04/21/25 06:59 14:59 22:59 Intake Total 1200 / 1200 Balance 1200 / 1200 Weight last 48 hrs Weight 70.2 kg Weight 69.2 kg Weight 71 kg Physical Exam 2 Const: COMMON NORMALS: no acute distress and patient oriented x3 Resp: COMMON NORMALS: normal respiratory effort, No retractions, No use of accessory muscles and clear to auscultation bilaterally AUSCULTATION: clear to auscultation bilaterally Cardio: COMMON NORMALS: regular rate, regular rhythm, S1 normal heart sound present and S2 normal heart sound present RATE: regular rate RHYTHM: r egular rhythm HEART SOUNDS: S1 normal heart sound present and S2 normal heart sound present GI: COMMON NORMALS: Normal to inspection, nondistended, normoactive bowel sounds present and non-tender Extremity: COMMON NORMALS: no pedal edema Neuro: COMMON NORMALS: patient oriented x3 Psych: COMMON NORMALS: mental status grossly normal Data 04/21/25 04:47 04/21/25 04:47 A&P Assessment and plan 1. Chest pain: 2. Hyperlipemia, mixed: 3. Type 2 diabetes mellitus: 4. NSTEMI (non-ST elevated myocardial infarction): Plan: Chest pain, NSTEMI - Serial EKGs, serial troponins, telemetry monitoring - Cardiac echo CONCLUSIONS Normal left ventricular size, systolic function and wall thickness, with no regional wall motion abnormalities. Left ventricular ejection fraction is estimated at 60%. Grade II/IV diastolic dysfunction, moderately elevated filling pressures. Moderate biatrial enlargement Moderate mitral regurgitation Moderate tricuspid valve regurgitation Mild pulmonic valve regurgitation There is no pericardial effusion. Right atrial pressure is around 5 mm of mercury. - Aspirin, statin, metoprolol, therapeutic Lovenox - Cardiology consulted Evidence of acute heart failure - Has right pleural effusion, elevated BNP, reports of shortness of breath, orthopnea, paroxysmal nocturnal dyspnea, crackles on examination, right JVD - Cardiac echo ordered - IV Lasix as needed Right pleural effusion - Will consider thoracentesis based on clinical progress Hyperbilirubinemia - No transaminitis -Denies history of alcoholism - Will monitor Ultrasound liver - Ferritin, iron, acute hep panel within normal limits FINDINGS: Liver: Liver has a coarse heterogeneous echotexture. The liver measures 14 cm in length. There is hepatopetal flow within the main portal vein. Gallbladder: Normal. No gallstones. There is no gallbladder wall thickening. Biliary ducts: Normal. No stones. No dilation. Pancreas: Visualized pancreas is unremarkable. Right kidney: Right kidney measures 4.4 x 5.5 x 9.4 cm. There is no hydronephrosis. Aorta: The aorta and IVC are normal in appearance. Type 2 diabetes mellitus, with neuropathy, moderate dose insulin sliding scale, glargine 20 units subcu a.m. Right foot, calcaneal ulcer, measuring 1 x 1 cm, podiatry medically manage History of atrial fibrillation - On Eliquis, at home -Therapeutic Lovenox - Continue metoprolol History of smoking, smoking cessation counseling Full code Therapeutic Lovenox for DVT prophylaxis PDMP PDMP Reviewed: Not Reviewed Attestations 2 Medical Necessity Statement*: Patient requires hospitalization for systolic CHF, chest pain, NSTEMI Diagnoses Chest pain R07.9 Hyperlipemia, mixed E78.2 Type 2 diabetes mellitus E11.9 NSTEMI (non-ST elevated myocardial infarction) I21.4
[2025-04-21] MEDS: morphine 4 mg/mL SDV 1 mL 2 MG IVP (20:29)
[2025-04-22] VITALS (16 sets, daily range): BP systolic 104–138; BP diastolic 62–91; PULSE 72–89; RESP 9–18; TEMP 36.1–36.7; O2SAT 92–99
[2025-04-22 03:45] LABS: Hematocrit 42.8 % (37-53); Hemoglobin 14.00 g/dL (11.27-16.99); Mean Corpuscular HGB Conc 32.7 g/dL (30-55); Mean Corpuscular Hemoglobin 33.5 pg (27-33); Mean Corpuscular Volume 102.4 fl (82-101); Nucleated Red Blood Cells % 0 %; Platelet Count 148 10^3/cmm (157-399); Red Blood Count 4.18 10^6/uL (3.85-5.65); White Blood Count 5.97 10^3/uL (3.29-11.43)
[2025-04-22 04:03] LABS: Alanine Aminotransferase 21 U/L (0-41); Albumin Level 3.7 g/dL (3.5-5.2); Alkaline Phosphatase 273 U/L (40-130); Anion Gap 13.4 (5-19); Aspartate Amino Transferase 27 U/L (0-40); Blood Urea Nitrogen 30 mg/dL (8-23); Calcium 8.9 mg/dL (8.5-10.5); Carbon Dioxide 28 mmol/L (22-29); Chloride 101 mmol/L (98-107); Creatinine Clr Calc Pharmacy 69.3333; Globulin 2.8 g/dL (1.3-4.6); Glucose 199 mg/dL (65-115); Magnesium 2.2 mg/dL (1.7-2.3); Osmolality Calculated 298 mOsm/kg (285-295); Potassium 4.4 mmol/L (3.5-5.1); Sodium 138 mmol/L (136-145); Total Protein 6.5 g/dL (6.6-8.7)
[2025-04-22] MEDS: insulin glargine 100 units/1 mL 20 UNIT SUBCUT (05:29)
[2025-04-22 07:24] LABS: COMPLEMENT COMPONENT C3C 126 mg/dL (82-185); COMPLEMENT COMPONENT C4C 19 mg/dL (15-53)
[2025-04-22] MEDS: polyethylene glycol 3350 Pkt 17 gm PO (08:29)
[2025-04-22] MEDS: lactulose oral liq 20 gm/30 mL UDC PO (08:29)
--- NOTE | 2025-04-22 11:11 | P.PN_ITS ---
Subjective 2 Subjective: c/o dizziness after standing to me on rounds yesterday. Orthostatic vital signs positive after that. Denies CP today Vitals/I&O/Wt Last Vital Signs Temp 97.3 F L 04/22/25 11:02 Pulse 83 04/22/25 11:03 Resp 18 04/22/25 11:02 BP 135/91 04/22/25 11:03 Pulse Ox 99 04/22/25 11:02 O2 Del Method Room Air 04/22/25 11:02 04/21/25 04/22/25 04/22/25 22:59 06:59 14:59 Intake Total 480 / 1680 240 / 1920 480 / 480 Balance 480 / 1680 240 / 1920 480 / 480 Weight last 48 hrs Weight 156 lb 4.924 oz Weight 154 lb 12.232 oz Physical Exam 2 Narrative: General: In no acute distress Neck: No jugular venous distention or carotid bruits Heart: irreg irreg, no murmur Lungs: Normal respiratory effort with no use of intercostal muscles, clear lungs sounds to auscultation Extremities: mild pedal edema Neuro: Alert and oriented x 3 Data 04/22/25 02:57 04/22/25 02:57 A&P Assessment and plan 1. Chest pain: due to ACS/NSTEMI 2. Atrial fibrillation: persistent on tele, chronic per patient Rate controlled Continue metoprolol Holding Eliquis for cath wednesday On Lovenox now 3. Diabetes: 4. NSTEMI (non-ST elevated myocardial infarction): no recurrent cp LHC once eliquis out of system scheudled for Wednesday unless needed clinically sooner continue lovenox, asa, statin, bb last lovenox dose tonight in anticipation of LHC in am npo after midnight 5. Dizziness: Orthostatic (21 point drop in BP after standing) Likely related to his peripheral neuropathy Start tubigrips to knees Avoid standing up quickly Keep hydrated - 64 oz water daily PDMP PDMP Reviewed: Not Reviewed Attestations 2 Medical Necessity Statement*: needs another 2 midnights in hospital for NSTEMI Coding Level of Care Code 72358 Diagnoses Chest pain R07.9 Atrial fibrillation I48.91 Diabetes E11.9 NSTEMI (non-ST elevated myocardial infarction) I21.4 Dizziness R42
--- NOTE | 2025-04-22 12:33 | P.PN_ITS ---
Subjective 2 Subjective: Seen this morning, denies any chest pain, no palpitations, no lightheadedness, no dizziness Vitals/I&O/Wt Last Vital Signs Temp 97.3 F L 04/22/25 11:02 Pulse 83 04/22/25 11:03 Resp 18 04/22/25 11:02 BP 135/91 04/22/25 11:03 Pulse Ox 99 04/22/25 11:02 O2 Del Method Room Air 04/22/25 11:02 04/21/25 04/22/25 04/22/25 22:59 06:59 14:59 Intake Total 480 / 1680 240 / 1920 480 / 480 Balance 480 / 1680 240 / 1920 480 / 480 Weight last 48 hrs Weight 70.9 kg Weight 70.2 kg Physical Exam 2 Const: COMMON NORMALS: no acute distress and patient oriented x3 Resp: COMMON NORMALS: normal respiratory effort, No retractions, No use of accessory muscles and clear to auscultation bilaterally AUSCULTATION: clear to auscultation bilaterally Cardio: COMMON NORMALS: regular rate, regular rhythm, S1 normal heart sound present and S2 normal heart sound present RATE: regular rate RHYTHM: r egular rhythm HEART SOUNDS: S1 normal heart sound present and S2 normal heart sound present GI: COMMON NORMALS: Normal to inspection, nondistended, normoactive bowel sounds present and non-tender Extremity: COMMON NORMALS: no pedal edema Neuro: COMMON NORMALS: patient oriented x3 Psych: COMMON NORMALS: mental status grossly normal Data 04/22/25 02:57 04/22/25 02:57 A&P Assessment and plan 1. Chest pain: 2. Hyperlipemia, mixed: 3. Type 2 diabetes mellitus: 4. NSTEMI (non-ST elevated myocardial infarction): Plan: Chest pain, NSTEMI - Serial EKGs, serial troponins, telemetry monitoring - Cardiac echo CONCLUSIONS Normal left ventricular size, systolic function and wall thickness, with no regional wall motion abnormalities. Left ventricular ejection fraction is estimated at 60%. Grade II/IV diastolic dysfunction, moderately elevated filling pressures. Moderate biatrial enlargement Moderate mitral regurgitation Moderate tricuspid valve regurgitation Mild pulmonic valve regurgitation There is no pericardial effusion. Right atrial pressure is around 5 mm of mercury. - Aspirin, statin, metoprolol, therapeutic Lovenox - Cardiology consulted Evidence of acute heart failure - Has right pleural effusion, elevated BNP, reports of shortness of breath, orthopnea, paroxysmal nocturnal dyspnea, crackles on examination, right JVD - Cardiac echo ordered - IV Lasix as needed Right pleural effusion - Will consider thoracentesis based on clinical progress Hyperbilirubinemia - No transaminitis -Denies history of alcoholism - Will monitor Ultrasound liver - Ferritin, iron, acute hep panel within normal limits FINDINGS: Liver: Liver has a coarse heterogeneous echotexture. The liver measures 14 cm in length. There is hepatopetal flow within the main portal vein. Gallbladder: Normal. No gallstones. There is no gallbladder wall thickening. Biliary ducts: Normal. No stones. No dilation. Pancreas: Visualized pancreas is unremarkable. Right kidney: Right kidney measures 4.4 x 5.5 x 9.4 cm. There is no hydronephrosis. Aorta: The aorta and IVC are normal in appearance. Type 2 diabetes mellitus, with neuropathy, moderate dose insulin sliding scale, glargine 20 units subcu a.m. Right foot, calcaneal ulcer, measuring 1 x 1 cm, podiatry medically manage History of atrial fibrillation - On Eliquis, at home -Therapeutic Lovenox - Continue metoprolol History of smoking, smoking cessation counseling Full code Therapeutic Lovenox for DVT prophylaxis PDMP PDMP Reviewed: Not Reviewed Attestations 2 Medical Necessity Statement*: Patient requires hospitalization for chest pain, undergoing coronary angiography tomorrow Diagnoses Chest pain R07.9 Hyperlipemia, mixed E78.2 Type 2 diabetes mellitus E11.9 NSTEMI (non-ST elevated myocardial infarction) I21.4
[2025-04-22] MEDS: morphine 4 mg/mL SDV 1 mL 2 MG IVP (20:25)
[2025-04-23] VITALS (47 sets, daily range): BP systolic 116–159; BP diastolic 78–112; PULSE 71–101; RESP 9–26; TEMP 36.4–36.7; O2SAT 95–96
[2025-04-23 04:56] LABS: Hematocrit 43.4 % (37-53); Hemoglobin 14.60 g/dL (11.27-16.99); Mean Corpuscular HGB Conc 33.6 g/dL (30-55); Mean Corpuscular Hemoglobin 34.4 pg (27-33); Mean Corpuscular Volume 102.4 fl (82-101); Nucleated Red Blood Cells % 0 %; Platelet Count 154 10^3/cmm (157-399); Red Blood Count 4.24 10^6/uL (3.85-5.65); White Blood Count 5.36 10^3/uL (3.29-11.43)
[2025-04-23 05:23] LABS: Anion Gap 14.0 (5-19); Blood Urea Nitrogen 24 mg/dL (8-23); Calcium 8.7 mg/dL (8.5-10.5); Carbon Dioxide 26 mmol/L (22-29); Chloride 101 mmol/L (98-107); Creatinine Clr Calc Pharmacy 78.7778; Glucose 217 mg/dL (65-115); Osmolality Calculated 295 mOsm/kg (285-295); Potassium 4.0 mmol/L (3.5-5.1); Sodium 137 mmol/L (136-145)
[2025-04-23] MEDS: insulin glargine 100 units/1 mL 20 UNIT SUBCUT (06:36)
--- NOTE | 2025-04-23 06:42 | XACV_ITS ---
Exam Room: [facility] Ht: 193 cm Wt: 71 kg BSA: 1.93 m2 Gender: Male : 1950 Any Known Allergies: No known allergies Exam Priority: Routine Procedure(s): Procedure Description: Diagnostic procedure Procedure Description: Left Heart Catheterization Procedure Description: Left ventriculography Procedure Description: Coronary Angiography Procedure Description: Pressure Wire HARINI, Tiago; Diagnostic Cath Status: Urgent Diagnostic Findings * Left Main has no disease. * Mid Left Anterior Descending to Distal Left Anterior Descending: moderate 50% stenosis, WALT: 3 flow, iFR performed: ratio is 0.95. * Proximal Right Coronary Artery to Mid Right Coronary Artery: minimal 30% stenosis, WALT: 3 flow. * Mid Circumflex: obstructive 60% stenosis, WALT: 3 flow, iFR performed: ratio is 0.99. * Coronary angiography shows right dominance. PCI Indication: New Onset Angina <= 2 months Conclusions 1. There is obstructive coronary artery disease with three vessel disease. Recommendations * Continue current medical management and risk factor modification. Diagnostic RX Recommendation: medical therapy and/or counseling Pressures Phase:Rest AO : / ( 0 ) @ 10:04:00 AM 136 / 83 ( 102 ) @ 10:04:00 AM / ( 0 ) @ 10:27:00 AM 151 / 94 ( 119 ) @ 10:30:00 AM Clinical Evaluation EBL: 5mL-10mL Procedural Details Procedure Consent Obtained. Admit Source: In Patient. Pre-Procedure Time Out. Identified patient by full name and date of as verbalized by the patient/guarantor. Does the consent match the physician's order: Yes. Accurate & Complete Informed Consent: Yes. Inpatient/Outpatient History & Physical on Chart: Yes. If H&P is completed, is and addenduem needed: No; If yes, is the addendum complete: N/A. Visualize and Verify Site with Patient/Guarantor: N/A. Relevant Radiology Images available: N/A. The risks, benefits, and alternatives of sedation and/or procedure were discussed by physician. The patient agrees to continue. Procedure started. [facility] Clinical Fraility Score: 3: Managing Well. Loan And Credit Manager Indications: Worsening Angina. Chest Pain Symptom Assessment: Typical Angina Symptoms. Correct patient, site and procedure confirmed by cath team. Current diagnosis: Unstable angina. PERRLA. Strong, equal hand teacher of the deaf bilaterally. Lungs clear x 5 lobes. IV Site on Arrival: 20 gauge in the left wrist. IV Fluids: 0.9% NaCl at KVO. 0 mL infused prior to recyclable materials distributor. Pre Procedural Pulses: bilateral posterior tibial was Doppled. Pre Procedural Pulses: bilateral dorsalis pedis was Doppled. Pre Procedural Pulses: bilateral radial was 3+. Oxygen started at 3liters/min via nasal canula. right groin was prepped with chloroprep then draped in the usual sterile fashion. right radial was prepped with chloroprep then draped in the usual sterile fashion. Physician notified. Physician arrived. Physician scrubbed in. Immediate Pre-Procedure Time Out. Correct Patient: Yes; Correct Procedure: Yes; Correct Site: Yes; Correct Patient Position: Yes; Correct Supplies: Yes; Dried Flammable Prep: Yes; Blood Products Available: N/A;. Lidocaine 1% infiltrated to the right radial. Arterial access obtained. A 5 [place] TIG catheter in over wire. Multiple views taken of left coronary artery. Catheter redirected to the RCA. Multiple views taken of right coronary artery. Physician review of films. Sheath to KVO. Catheter removed over the wire. 6 [place] XB 3 guide catheter was inserted over the wire. Unable to seat the guide. Removed over the wire. 6 [place] JL 4 guide catheter was inserted over the wire. Guide seated in the LCS. IFR wire inserted. Wire zeroed and normalized proximal to lesion. IFR wire advanced across the lesion in the Mid LAD. Mid LAD IFR spot 0.95. Wire Redirected down the mid Circumflex. Mid Circumflex IFR Spot 0.99. ACT drawn. Results 375 seconds. Therapeutic limits - pre-heparin administration 90-150 seconds and monitoring heparin during a vascular procedure >250 seconds. [id number]. IFR wire removed. Guide catheter removed over the wire. Physician scrubbed out. A TR Band was successful obtaining hemostatsis at the Right Radial artery insertion site. TR band placed. Hemostasis obtained. Post Procedure: Pulses reassessed and unchanged. PERRLA. Strong, equal hand teacher of the deaf bilaterally. No VTE prophylaxis required. Medication's Wasted: Lidocaine 1% = 18 ml , Versed = 1 mg , Nitro = 49.8 mg , Heparin = 4000 units , Fentanyl = 50 mcg. Total IV fluids: 50 mL. Fluoro: 4:01. Contrast type used: Omnipaque 300 mgI/mL, 500 mL bottle. Post-op diagnosis: Mid Circumflex and LAD lesions; Negative IFR measurments of both lesion. Complications: None. Estimated blood loss: 5mL-10mL. Responsiveness - Normal response to verbal stimuli; alert and oriented, PERRLA. Airway - Unaffected, no intervention required; spontaneous ventilation. Circulation: W/N/L, pulses unchanged. Nausea/Vomiting: No. Procedure completed. Patient transferred by bed to 1st floor. Vital chart was stopped. Access Site Site: Right Radial artery Sheath Size: 6 Fr Hemostasis Method: TR Band Hemostasis Success: Successful Procedure Medications Start: 8:40 AM Stop: 8:40 AM Medication: Benadryl Amount: 25 mg Route: I.V. Start: 8:58 AM Stop: 8:58 AM Medication: Versed Amount: 1 mg Route: I.V. Start: 8:58 AM Stop: 8:58 AM Medication: Fentanyl Amount: 50 mcg Route: I.V. Start: 8:59 AM Stop: 8:59 AM Medication: Nitrogylcerin Amount: 200 mcg Route: I.A. Start: 9:01 AM Stop: 9:01 AM Medication: Heparin Amount: 5000 units Route: I.V. Start: 9:14 AM Stop: 9:14 AM Medication: Heparin Amount: 2000 units Route: I.V. Start: 9:14 AM Stop: 9:14 AM Medication: Versed Amount: 1 mg Route: I.V. Start: 9:30 AM Stop: 9:30 AM Medication: Versed Amount: 1 mg Route: I.V. I, the attending physician, have reviewed and verified all procedure medications. Yes, all medications given per verbal order History/Risk Factors Hypertension: Yes Dyslipidemia: Yes Peripheral Arterial Disease (PAD): No Myocardial Infarction (AK): No Obesity: No Renal Disease: No Tobacco Use: Current/Recent(w/in 1 year) Prior Interventions PCI: No CABG: No Valve Surgery: No Report Signatures Finalized by Anushka Ordoñez MD on 04/23/2025 09:58 AM
[2025-04-23] MEDS: morphine 4 mg/mL SDV 1 mL 2 MG IVP (07:26)
--- NOTE | 2025-04-23 08:37 | P.HPUD_ITS ---
Surgery/Procedure H&P Update DATE OF PROCEDURE: April 23, 2025 DATE H&P PERFORMED: 04/20/25 H&P UPDATE INFORMATION: I have reviewed H&P completed within last 30 days, I have examined patient prior to procedure and No changes to prior documentation PREOP DIAGNOSIS: Acute coronary syndrome PLANNED PROCEDURE: Operation Date: 04/23/25 08:30 Proposed Procedures p Cardiac Catheterization(Not Applicable) - Anushka Ordoñez MD PATIENT REASSESSED PRIOR TO SEDATION, WITH NO CHANGE NOTED: Yes PHYSICAL EXAM: alert, oriented x 3, clear to auscultation bilaterally, regular rate & rhythm and operative site marked AIRWAY EVAL/ANESTHESIA PLAN: ASA II, Risks, benefits & alternatives of sedation and/or procedure discussed and Patient agrees to continue as planned ADDITIONAL INFORMATION: All risk-benefit and already for the procedure has been explained to the pa tient. Patient understands 2% risk of stroke major bleed. Patient understand 5% risk of minor bleeding oozing infection hematoma contrast-induced nephropathy urgent emergent vascular bypass surgery. Patient would like to proceed with it.
--- NOTE | 2025-04-23 10:00 | PM.PN ---
Subjective Subjective: Patient underwent left heart cath today. He was noted to have moderate mid 40% LAD and 50 to 60% mid circumflex stenosis. Both were challenged with IFR, IFR was in nonischemic range therefore decided to treated medically. A-fib remained under control. Vitals/I&O/Wt Last Vital Signs Temp 98.1 F 04/23/25 07:02 Pulse 86 04/23/25 07:02 Resp 17 04/23/25 07:26 BP 159/99 04/23/25 07:02 Pulse Ox 95 04/23/25 07:26 O2 Del Method Room Air 04/23/25 07:02 04/22/25 04/23/25 04/23/25 22:59 06:59 14:59 Intake Total 480 / 1200 Balance 480 / 1200 Weight last 48 hrs Weight 156 lb 11.979 oz Weight 156 lb 4.924 oz Physical Exam Const: COMMON NORMALS: alert OTHER: GENERAL: Patient is alert, awake and oriented x3. HEART: Regular S1 and S2. No murmur, rub or gallop. LUNGS: Clear to auscultate bilaterally. CENTRAL NERVOUS SYSTEM: Grossly nonfocal. EXTREMITIES: Lower extremities with out edema bilaterally. Resp: COMMON NORMALS: clear to auscultation bilaterally AUSCULTATION: clear to auscultation bilaterally Neuro: SENSORIUM/ORIENTATION: Yes alert Data 04/23/25 04:16 04/23/25 04:16 A&P Assessment and plan 1. Chest pain: due to ACS/NSTEMI 2. Atrial fibrillation: Rate controlled, continue metoprolol succinate to 25 mg daily. Start patient on apixaban once TR band is off. 3. Diabetes: As per medicine 4. NSTEMI (non-ST elevated myocardial infarction): Patient underwent left heart catheterization as above noted to have nonischemic mid LAD and circumflex lesions, will treat medically since IFR was not in ischemic range, optimize medication with beta-lori aspirin and statin. Advised quitting smoking. From a cardiovascular perspective patient can be discharged this afternoon. Follow-up with cardiology nurse practitioner in 2 weeks 5. Dizziness: Plan: As above PDMP PDMP Reviewed: Not Reviewed Attestations Medical Necessity Statement*: From a cardiovascular perspective patient can be discharged home this afternoon once TR band is off. Coding Level of Care Code Acute Code for [facility] Diagnoses Chest pain R07.9 Chest pain type: unspecified Atrial fibrillation I48.91 Diabetes E11.9 NSTEMI (non-ST elevated myocardial infarction) I21.4 Dizziness R42
--- NOTE | 2025-04-23 10:07 | PC.NURSE ---
patient back from technology lab teacher at 1000. TR band in place with 14ml of air instilled. Patient resting comfortably, family at bedside.
--- NOTE | 2025-04-23 10:36 | PC.SOCIAL ---
IMM Update pg 2 of IMM Updated and reviewed w/ patient. Copy provided and copy dated, initialed and placed in chart.
--- NOTE | 2025-04-23 10:55 | PC.NURSE ---
please see patient vitals charted under vitals in chart
--- NOTE | 2025-04-23 11:03 | PC.NURSE ---
Patient refusing glucose stick, Used his dexcom at 11:04am and it was 180.
--- NOTE | 2025-04-23 12:31 | PC.NURSE ---
tr band off at 1229pm. No hematoma noted.
--- NOTE | 2025-04-23 13:29 | PM.DCS ---
Discharge Providers Date of Admission: 04/19/25 18:30 Date of Discharge: April 23, 2025 Attending Provider at Admission: Morris Bruno MD Attending Provider at Discharge: Morris Bruno MD Primary Care Provider: ADAIR Blue Diagnoses at Discharge Discharge Diagnosis 1. Chest pain: 2. Atrial fibrillation: 3. Diabetes: 4. NSTEMI (non-ST elevated myocardial infarction): 5. Dizziness: Reason for Visit Reason for Visit: chest pain Hospital Course Hospital Course Caleb Rogers is a 75 year old male with a past medical history of current smoker, atrial fibrillation on Eliquis, history of type 2 diabetes mellitus, hyperlipidemia, who presents to [facility] for chest pain. Currently patient is alert oriented x 3, following all commands, he reports that he has had substernal chest pain in a bandlike fashion across the anterior chest, radiating down both arms associate with diaphoresis, shortness of breath. He also reports increased shortness of breath, increased shortness of breath with exertion with orthopnea paroxysmal nocturnal dyspnea. He does report that about a week ago he was in an ER in [facility], in which he was having chest discomfort his troponins were elevated they recommended for him to be watched overnight as they were trying to transfer him to a tertiary level center but he left AGAINST MEDICAL ADVICE. Currently he denies any active chest pain, Patient was admitted to [facility] for chest pain, NSTEMI - Serial EKGs, serial troponins, telemetry monitoring - Cardiac echo CONCLUSIONS Normal left ventricular size, systolic function and wall thickness, with no regional wall motion abnormalities. Left ventricular ejection fraction is estimated at 60%. Grade II/IV diastolic dysfunction, moderately elevated filling pressures. Moderate biatrial enlargement Moderate mitral regurgitation Moderate tricuspid valve regurgitation Mild pulmonic valve regurgitation There is no pericardial effusion. Right atrial pressure is around 5 mm of mercury. - Aspirin, statin, metoprolol, therapeutic Lovenox - Cardiology consulted, status post coronary angiography no obstructive CAD - Discharged with aspirin, statin, metoprolol, Eliquis with close follow-up with cardiology as outpatient Evidence of acute heart failure - Has right pleural effusion, elevated BNP, reports of shortness of breath, orthopnea, paroxysmal nocturnal dyspnea, crackles on examination, right JVD - Cardiac echo as above - IV Lasix as inpatient, overall clinically proved -Discharged on p.o. Lasix as needed Right pleural effusion - Received IV diuresis Hyperbilirubinemia - No transaminitis -Denies history of alcoholism - Will monitor Ultrasound liver - Ferritin, iron, acute hep panel within normal limits FINDINGS: Liver: Liver has a coarse heterogeneous echotexture. The liver measures 14 cm in length. There is hepatopetal flow within the main portal vein. Gallbladder: Normal. No gallstones. There is no gallbladder wall thickening. Biliary ducts: Normal. No stones. No dilation. Pancreas: Visualized pancreas is unremarkable. Right kidney: Right kidney measures 4.4 x 5.5 x 9.4 cm. There is no hydronephrosis. Aorta: The aorta and IVC are normal in appearance. Right foot, calcaneal ulcer, measuring 1 x 1 cm, podiatry medically manage, discharged with outpatient follow-up History of atrial fibrillation - On Eliquis, at home -Therapeutic Lovenox - Continue metoprolol, Eliquis at home History of smoking, smoking cessation counseling Physical Exam Const: COMMON NORMALS: no acute distress and patient oriented x3 Resp: COMMON NORMALS: normal respiratory effort, No retractions, No use of accessory muscles and clear to auscultation bilaterally AUSCULTATION: clear to auscultation bilaterally Cardio: COMMON NORMALS: regular rate, regular rhythm, S1 normal heart sound present and S2 normal heart sound present RATE: regular rate RHYTHM: regular rhythm HEART SOUNDS: S1 normal heart sound present and S2 normal heart sound present GI: COMMON NORMALS: Normal to inspection, nondistended, normoactive bowel sounds present and non-tender Extremity: COMMON NORMALS: no pedal edema Neuro: COMMON NORMALS: patient oriented x3 Psych: COMMON NORMALS: mental status grossly normal Discharge Data Studies Completed and Pending Completed Studies During Hospitalization Category Date Time Status CT chest abdpel w/*[id number] Stat Cat Scan 04/19/25 15:45 Completed [employer] request for service Routine Exams 04/23/25 06:42 Completed XR chest 1V portable [id number] Stat Exams 04/19/25 14:14 Completed CV. echo complete* [id number] Stat Ultrasound 04/19/25 18:24 [place] [id number] Routine Ultrasound 04/21/25 13:52 Completed Pending at discharge Category Date Time Status MELIA Profile Rheumatology Stat Lab 04/19/25 21:01 Results Basic Metabolic Panel AM LABS Lab 04/24/25 04:00 Ordered Basic Metabolic Panel AM LABS Lab 04/25/25 04:00 Ordered Complete Blood Count w/Auto AM LABS Lab 04/24/25 04:00 Ordered Complete Blood Count w/Auto AM LABS Lab 04/25/25 04:00 Ordered Radiology Impressions Chest X-Ray 04/19/25 14:14 IMPRESSION: Possible right pleural effusion and right lower lung opacities of unknown chronicity as above. Patient had a large right pleural effusion on the CT scan of 06/20/2024. Abnormal appearance of the right hilum. Follow-up chest x-ray or CT scan of the chest as clinically warranted. Chest/Abdomen/Pelvis CT 04/19/25 15:45 IMPRESSION: 1. Moderate right pleural effusion. 2. Centrilobular and paraseptal emphysematous changes are present bilaterally. 3. There are a few scattered pulmonary nodules within the right and left lung as described. Largest measures up to 7 mm. For patients at low risk (minimal or absent history of smoking and of other known risk factors), recommend CT Chest at 3-6 months, then consider CT Chest at 18-24 months. For patients at high risk (history of smoking or of other known risk factors), recommend CT Chest at 3-6 months, then CT Chest at 18-24 months. IMPRESSION: 1. Abnormal heterogeneous enhancement is present throughout the liver. Liver appears mottled. Geographic areas of heterogeneous enhancement and scattered hypodensities are present within the right lobe of the liver. A portion of the liver surface appears slightly nodular. Please correlate with any history of cirrhosis. Infiltrative process of the liver is not excluded. Continued surveillance is recommended. Follow-up MRI of the liver should be considered. 2. Mild dilatation of the common bile duct is unchanged. No significant intrahepatic ductal dilatation. No opaque stones or sludge within the gallbladder. 3. Large amount of stool throughout the colon in keeping with constipation. No evidence of a small bowel obstruction. No evidence for acute colitis. 4. Mild diffuse stranding is present throughout the mesenteric fat within the abdomen and pelvis. Findings are somewhat nonspecific. 5. No infrarenal abdominal aortic aneurysm. No evidence for dissection of the abdominal aorta. Major branch vessels are patent. 6. The bladder is markedly distended. Liver Ultrasound 04/21/25 13:52 IMPRESSION: Heterogeneous appearance of the liver. No focal lesion identified. Laboratory Results WBC 5.36 10^3/uL (3.29-11.43) 04/23/25 04:16 RBC 4.24 10^6/uL (3.85-5.65) 04/23/25 04:16 Hgb 14.60 g/dL (11.27-16.99) 04/23/25 04:16 Hct 43.4 % (37-53) 04/23/25 04:16 MCV 102.4 fl (82-101) H 04/23/25 04:16 MCH 34.4 pg (27-33) H 04/23/25 04:16 MCHC 33.6 g/dL (30-55) 04/23/25 04:16 RDW 14.6 % (12.1-15.1) 04/23/25 04:16 Plt Count 154 10^3/cmm (157-399) L 04/23/25 04:16 MPV 9.3 fL (7.4-10.4) 04/23/25 04:16 Neut % (Auto) 67.9 % 04/23/25 04:16 Lymph % (Auto) 20.1 % 04/23/25 04:16 [place] % (Auto) 10.1 % 04/23/25 04:16 Eos % (Auto) 1.3 % 04/23/25 04:16 Baso % (Auto) 0.4 % 04/23/25 04:16 Neut # (Auto) 3.64 10^3/uL (1.8-7.7) 04/23/25 04:16 Lymph # (Auto) 1.1 10^3/uL (0.8-4.8) 04/23/25 04:16 [place] # (Auto) 0.5 10^3/uL (0.2-0.9) 04/23/25 04:16 Eos # (Auto) 0.1 10^3/uL (0.0-0.8) 04/23/25 04:16 Baso # (Auto) 0.0 10^3/uL (0.0-0.1) 04/23/25 04:16 Nucleated RBC % (auto) 0 % 04/23/25 04:16 Nucleated RBCs # 0.0 /100WBC 04/23/25 04:16 ESR 7 mm/hr (0-10) 04/19/25 14:20 PT 15.20 SECONDS (12.1-14.9) H 04/19/25 14:40 INR 1.12 (0.8-1.2) 04/19/25 14:40 APTT 34.5 SECONDS (23.9-36.7) 04/19/25 14:40 D-Dimer 0.59 ug/mLFEU (0-0.59) 04/19/25 14:40 Sodium 137 mmol/L (136-145) 04/23/25 04:16 Potassium 4.0 mmol/L (3.5-5.1) 04/23/25 04:16 Chloride 101 mmol/L (98-107) 04/23/25 04:16 Carbon Dioxide 26 mmol/L (22-29) 04/23/25 04:16 Anion Gap 14.0 (5-19) 04/23/25 04:16 BUN 24 mg/dL (8-23) H 04/23/25 04:16 Creatinine 0.7 mg/dL (0.7-1.2) 04/23/25 04:16 GFR Calculation Not Reportable 04/23/25 04:16 Glucose 217 mg/dL (65-115) H 04/23/25 04:16 POC Glucose 190 mg/dL (70-110) H 04/23/25 06:20 Estimat Average Glucose 206 04/19/25 14:20 Hemoglobin A1c 8.8 % (4.0-6.0) H 04/19/25 14:20 Calculated Osmolality 295 mOsm/kg (285-295) 04/23/25 04:16 Lactic Acid 1.6 mmol/L (0.5-2.2) 04/19/25 21:01 Calcium 8.7 mg/dL (8.5-10.5) 04/23/25 04:16 Phosphorus 3.8 mg/dL (2.5-4.5) 04/22/25 02:57 Magnesium 2.2 mg/dL (1.7-2.3) 04/22/25 02:57 Iron 133 ug/dL (59-158) 04/19/25 14:40 Ferritin 105 ng/mL (30-400) 04/19/25 14:40 Total Bilirubin 1.2 mg/dL (0.15-1.2) 04/22/25 02:57 GGT 200 U/L (8-61) H 04/19/25 14:40 AST 27 U/L (0-40) 04/22/25 02:57 ALT 21 U/L (0-41) 04/22/25 02:57 Alkaline Phosphatase 273 U/L (40-130) H 04/22/25 02:57 Troponin T Baseline 42 ng/L (0-15) H 04/19/25 14:40 Troponin T 120 Minute 29.32 ng/L (0-15) H 04/19/25 16:33 Delta Troponin T -12.68 ABS# (0-10) L 04/19/25 16:33 Troponin T Hi Sens 6Hr 45.35 ng/L (0-15) H 04/19/25 21:01 Troponin T Hi Sens 6Hr Delta 3.35 ng/L (0-12) 04/19/25 21:01 NT-Pro-B Natriuret Pep 1192 pg/mL (0-450) H 04/20/25 02:56 Total Protein 6.5 g/dL (6.6-8.7) L 04/22/25 02:57 Albumin 3.7 g/dL (3.5-5.2) 04/22/25 02:57 Globulin 2.8 g/dL (1.3-4.6) 04/22/25 02:57 Triglycerides 71 mg/dL (0-150) 04/19/25 14:40 Cholesterol 124 mg/dL (0-200) 04/19/25 14:40 LDL Cholesterol, Calc 46 mg/dL (50-129) L 04/19/25 14:40 HDL Cholesterol 64 mg/dL (60-100) 04/19/25 14:40 LDL/HDL Ratio 0.72 RATIO (0.00-3.22) 04/19/25 14:40 Cholesterol/HDL Ratio 1.94 mg/dL (1.0-5.00) 04/19/25 14:40 Lipase 8 U/L (13-60) L 04/19/25 14:40 Procalcitonin 0.06 ng/mL (0-0.5) 04/19/25 14:40 TSH 1.03 uIU/mL (0.27-4.20) 04/19/25 14:40 Urine Color Yellow (Yellow) 04/19/25 22:13 Urine Appearance Clear (CLEAR) 04/19/25 22:13 Urine pH 6.5 (5-7) 04/19/25 22:13 Ur Specific [place] 1.016 (1.005-1.030) 04/19/25 22:13 Urine Protein Negative (Negative) 04/19/25 22:13 Urine Glucose (UA) 3+ (Normal) H 04/19/25 22:13 Urine Ketones Trace (Negative) 04/19/25 22:13 Urine Blood Negative (Negative) 04/19/25 22:13 Urine Nitrate Negative (Negative) 04/19/25 22:13 Urine Bilirubin Negative (Negative) 04/19/25 22:13 Urine Urobilinogen 0.2 mg/dL (Negative) 04/19/25 22:13 Ur Leukocyte Esterase Negative (Negative) 04/19/25 22:13 Urine RBC 0-2 /hpf (0-2) 04/19/25 22:13 Urine WBC 0-5 /hpf (0-5) 04/19/25 22:13 Ur Squamous Epith Cells 0-5 /hpf (0-5) 04/19/25 22:13 Amorphous Sediment Not Reportable 04/19/25 22:13 Urine Bacteria None seen /hpf (NONE) 04/19/25 22:13 Hyaline Casts 0-4 /lpf H 04/19/25 22:13 Urine Opiates Screen Positive ng/mL (Negative) H 04/19/25 22:13 Ur Barbiturates Screen Negative ng/mL (Negative) 04/19/25 22:13 Ur Phencyclidine Scrn Negative ng/mL (Negative) 04/19/25 22:13 Ur Amphetamines Screen Negative ng/mL (Negative) 04/19/25 22:13 U Benzodiazepines Scrn Negative ng/mL (Negative) 04/19/25 22:13 Urine Cocaine Screen Negative ng/mL (Negative) 04/19/25 22:13 U Marijuana (THC) Screen Negative ng/mL (Negative) 04/19/25 22:13 Ethyl Alcohol < 10 mg/dL (0-10) 04/19/25 14:40 SNAG-1 Antibody <1.0 neg AI (<1.0 NEG) 04/19/25 21:01 SS-A Antibody <1.0 neg AI (<1.0 NEG) 04/19/25 21:01 SS-B Antibody <1.0 neg AI (<1.0 NEG) 04/19/25 21:01 Sm ([place]) Antibody <1.0 neg AI (<1.0 NEG) 04/19/25 21:01 THERAPEUTIC STRATEGY LEAD Antibody <1.0 neg AI (<1.0 NEG) 04/19/25 21:01 Scl-70 Antibody <1.0 neg AI (<1.0 NEG) 04/19/25 21:01 Centromere B Antibody <1.0 neg AI (<1.0 NEG) 04/19/25 21:01 Complement C3c 126 mg/dL (82-185) 04/19/25 21:01 Complement C4c 19 mg/dL (15-53) 04/19/25 21:01 Hepatitis A IgM Ab Non-reactive (Nonreactive) 04/19/25 14:40 Hep Bs Antigen Non-reactive (Nonreactive) 04/19/25 14:40 Hep B Core IgM Ab Non-reactive (Nonreactive) 04/19/25 14:40 Hepatitis C Antibody Non-reactive (Nonreactive) 04/19/25 14:40 HIV 1&2 Ab & HIV 1 Ag Non-reactive (Non-Reactiv) 04/19/25 14:40 HIV 1&2 Antibody Non-reactive (Non-Reactiv) 04/19/25 14:40 Vitals Last Vital Signs Temp 97.7 F 04/23/25 11:26 Pulse 71 04/23/25 11:26 Resp 19 H 04/23/25 11:26 BP 153/112 04/23/25 11:26 Pulse Ox 96 04/23/25 11:26 O2 Del Method Room Air 04/23/25 11:26 Discharge Plan Discharge Patient Disposition: Home Health Service Condition: Stable Prescriptions: New aspirin 81 mg Tablet,Delayed Release (Dr/Ec) 81 mg PO DAILY 30 Days Qty: 30 0RF nitroglycerin 0.4 mg Tablet, Sublingual 0.4 mg sublingual Q5M PRN (Reason: Chest Pain) 30 Days Qty: 30 0RF furosemide [Lasix] 40 mg tablet 20 mg PO DAILY PRN (Reason: edema) 30 Days Qty: 30 0RF Rx Instructions: edema or sob or weight gain potassium chloride [Klor-Con 10] 10 mEq tablet extended release 10 meq PO DAILY PRN (Reason: with lasix) 30 Days Qty: 30 0RF lisinopril 20 mg tablet 20 mg PO DAILY 30 Days Qty: 30 0RF Continued (DME) custom 3010 inserts with right 1st met cut out See Rx Instructions .Route .MEDSUPPLY Qty: 1 0RF Rx Instructions: As directed ([facility] [place]) diabetic shoes with 3 inserts See Rx Instructions .Route .MEDSUPPLY Qty: 1 0RF Rx Instructions: As directed to the shoe guys ([facility] [place]) FreeStyle Kalyani 2 [place] [facility] See Rx Instructions .Route Qty: 1 0RF Rx Instructions: As directed trazodone 100 mg tablet 100 mg PO BEDTIME PRN (Reason: insomnia) hydrocodone-acetaminophen 7.5-325 mg tablet 7.5 tab PO Q6H PRN (Reason: pain) ropinirole 2 mg Tablet 2 mg PO BID PRN (Reason: Restless Leg(S)) metoprolol succinate 25 mg tablet extended release 24 hr 25 mg PO DAILY insulin lispro [Humalog KwikPen Insulin] 100 unit/mL Insulin Pen See Protocol SUBCUT BIDWM Protocol: Insulin Corrective High-Dose Regimen Condition: Fingerstick Blood Glucose Dose/Route: Insulin Units Condition: 141-180 mg/dl Dose/Route: 6 units/SQ Condition: 181-220 mg/dl Dose/Route: 8 units/SQ Condition: 221-260 mg/dl Dose/Route: 10 units/SQ Condition: 261-300 mg/dl Dose/Route: 12 units/SQ Condition: 301-350 mg/dl Dose/Route: 14 units/SQ Condition: 351-400 mg/dl Dose/Route: 16 units/SQ Condition: greater than 400 mg/dl Dose/Route: 18 units/SQ insulin glargine [Lantus Solostar U-100 Insulin] 100 unit/mL (3 mL) Insulin Pen 23 unit SUBCUT QAM gabapentin 300 caplet PO TID atorvastatin 40 mg tablet 40 mg PO DAILY 30 Days Qty: 30 1RF Eliquis 5 mg Tablet 5 mg PO BID 30 Days Qty: 60 0RF Discontinued celecoxib [Celebrex] 100 mg capsule 100 mg PO BID 90 Days Qty: 180 0RF No Action nicotine 21 mg/24 hr patch 24 hour 1 patch transdermal DAILY Qty: 28 0RF fluticasone propion-salmeterol [Wixela Inhub] 250-50 mcg/dose blister with device 1 inh inhalation BID tiotropium bromide [Spiriva with HandiHaler] 18 mcg capsule, w/inhalation device 1 cap inhalation DAILY Rx Instructions: puncture 1 cap using device; one dose = 2 inhalations (DME) PTB - AFO left See Rx Instructions .Route .MEDSUPPLY Qty: 1 0RF Rx Instructions: As directed to the kristine lan (DME) [employer] Kalyani 2 Sensor Kit See Rx Instructions .ROUTE .COMPLEX Qty: 6 4RF Dose Instruction: USE SENSOR EVERY 2 WEEKS CHANGE SENSOR/SITE EVERY 14 DAYS. TO REPLACE SENSOR FOR ANY REASON OR FOR TECHNICAL HELP PLEASE CALL [employer] DESK: -SPECIFIC PHONE NUMBER: ([phone]). 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 OK for DC: Podiatry Discharge Order = DC NOW: Discharge Order (Routine); Ordered 04/23/25 Ordered By: Morris Bruno Referrals: [facility] [Outside] Gayle Garg MD [Physician, Pulmonology] - 04/30/25 11:25 am Referral Note: pulmonary nodule Jovani Aldana MD [Referring, Internal Medicine] - 4-7 days Anushka Ordoñez MD [Physician, Cardiology] - 04/30/25 2:15 pm Preethi Jacques FNP [Primary Care Provider, Nurse Practitioner] - 04/27/25 9:30 am Discharge Diet: Cardiac Discharge Activity: Resume usual activity Patient Instructions: Nitroglycerin (By mouth), Furosemide (By mouth) (Lasix), Potassium Chloride (By mouth), Aspirin (By mouth), A-fib (Atrial Fibrillation) (DC), Chest Pain Stoplight, Opioid Safety, Post Angiogram Home Care Instructions, Patient Portal & Rivera Instructions Activity Restrictions/Additional Instructions: PODIATRY DISCHARGE INSTRUCTIONS--DR. SWANSON -Dressing changes: No dressings -Follow up: Dr. Evans at [facility] and Dr. Lainez, D.P.M. at [facility] -Weightbearing status: Weightbearing as tolerated -Antibiotics: No antibiotics from podiatry standpoint -Please contact podiatry clinic at [phone] with any questions regarding patient's discharge - If you gain more than 3 pounds or develop edema or shortness of breath please use Lasix 20 mg daily with potassium replacement - I would use Lasix 20 meq with potassium for 3 days in a row - If after 3 days she continues to have shortness of breath or edema or weight gain go to the emergency room - Your blood pressure needs to be monitored very closely - Please follow-up with your primary care provider for blood pressure monitoring - Smoking cessation - Please stop smoking - Please avoid alcohol consumption - Follow-up with GI for your LFT abnormalities - For your pulmonary nodules please follow-up with pulmonary Discharge Attestations Time Spent in Discharge Care*: greater than 30 min Quality Metrics Clinical Quality Measures [ No reported AMI, CVA or VTE this stay] Coding Level of Care Code 52867 Total time (in minutes) for Discharge: 45 Diagnoses Chest pain R07.9 Chest pain type: unspecified Atrial fibrillation I48.91 Diabetes E11.9 NSTEMI (non-ST elevated myocardial infarction) I21.4 Dizziness R42
[2025-04-23 13:44] LABS: THYROID PEROXIDASE ANTIBODIES 2 IU/mL (<9)
--- NOTE | 2025-04-23 14:12 | PC.NURSE ---
Addendum entered by Preethi Khan RN 04/23/25 14:13: Lisinopril given at 1400. Original Note: per Dr Bruno, give patient the lisinopril and wait 30 min and recheck blood pressure, even though discharge orders are in.
[2025-04-23 14:44] LABS: COMPLEMENT, TOTAL (CH50) 60 U/mL (31-60)
[2025-04-25 12:04] LABS: DNA AB (DS) CRITHIDIA,IFA NEGATIVE (NEGATIVE)
== END 2025-04-23 14:44 | disposition home or self-care (01) | DRG 281 ==
LOC: ER 18:30 → CSU 18:30
PROVIDERS: Internal Medicine Cardiovascular Disease; Admitting Provider Family Medicine; Emergency Provider Physician Assistant; PCP Nurse Practitioner; Visit Provider Family Medicine
DX: I21.4 Non-ST elevation (NSTEMI) myocardial infarction (principal); I48.19 Other persistent atrial fibrillation; J91.8 Pleural effusion in other conditions classified elsewhere; L97.419 Non-pressure chronic ulcer of right heel and midfoot with unspecified severity; F17.200 Nicotine dependence, unspecified, uncomplicated; I11.0 Hypertensive heart disease with heart failure; I50.9 Heart failure, unspecified; E78.2 Mixed hyperlipidemia; E80.6 Other disorders of bilirubin metabolism; E11.40 Type 2 diabetes mellitus with diabetic neuropathy, unspecified; E11.621 Type 2 diabetes mellitus with foot ulcer; Z79.01 Long term (current) use of anticoagulants; Z71.6 Tobacco abuse counseling; Z79.4 Long term (current) use of insulin; Z79.899 Other long term (current) drug therapy
CPT/HCPCS: 36415; 36416; 71045; 71260; 74177; 76705; 80048; 80053; 80061; 80074; 80306; 80307; 81001; 82728; 82962; 82977; 83036; 83540; 83605; 83690; 83735; 83880; 84100; 84145; 84443; 84484; 85025; 85347; 85378; 85610; 85651; 85730; 86160; 86162; 86235; 86255; 86376; 87806; 93005; 93306; 93454; 93571; 93572; 94664; 96372; 99152; 99153; 99285; C1769; C1887; C1894; J1200; J1644; J1650; J1815; J1938; J2250; J2270; J2470; J3010; J3490; J7030; J9999; Q9967

== ENCOUNTER → 2025-04-30 11:36 | Outpatient (BNVA) | payer OTHER, SELFPAY | PROVIDERS: PCP Nurse Practitioner; Visit Provider Internal Medicine | DX: R91.8 Other nonspecific abnormal finding of lung field (principal); J44.89 Other specified chronic obstructive pulmonary disease; R59.1 Generalized enlarged lymph nodes; J43.9 Emphysema, unspecified; Z71.6 Tobacco abuse counseling; F17.210 Nicotine dependence, cigarettes, uncomplicated | CPT/HCPCS: 36415; 85025; 99204; 99406; Q3014 ==

== ENCOUNTER → 2025-04-30 14:14 | Outpatient (BNVA) | payer OTHER, SELFPAY | PROVIDERS: PCP Nurse Practitioner; Visit Provider Internal Medicine Cardiovascular Disease | DX: I48.91 Unspecified atrial fibrillation (principal); I10 Essential (primary) hypertension; I25.10 Atherosclerotic heart disease of native coronary artery without angina pectoris; L97.509 Non-pressure chronic ulcer of other part of unspecified foot with unspecified severity; Z72.0 Tobacco use; Z79.01 Long term (current) use of anticoagulants | CPT/HCPCS: 99214 ==

== ENCOUNTER 2025-05-11 14:57 | Outpatient (CLI) | payer OTHER, SELFPAY ==
--- NOTE | 2025-05-11 15:00 | USR_ITS ---
PROCEDURE INFORMATION: Exam: US Duplex Bilateral Lower Extremity Arteries Exam date and time: 05/11/2025 3:14 PM Age: 75 years old Clinical indication: Pain; Leg, lower; Bilateral; Ankle ulcerations; Additional info: Leg pain TECHNIQUE: Imaging protocol: Real-time ultrasound scan of the arteries of the bilateral lower extremities with 2-D lafleur scale, color Doppler flow and spectral waveform analysis. Images documented and saved. COMPARISON: MR foot RT wo/w con [id number] 09/15/2023 11:16 AM FINDINGS: Right external iliac artery: Right external iliac artery is patent. No focal stenosis or increase in velocity. Waveforms are triphasic. Peak systolic velocity measures up to 118 cm/sec. Right common femoral artery: Right common femoral artery is widely patent. Minimal peripheral plaque. No focal stenosis or increase in velocity. Waveforms are triphasic. Peak systolic velocity measures up to 128 cm/sec. Right superficial femoral artery: Right superficial femoral artery is widely patent. Minimal scattered plaque. No focal stenosis or increase in velocity. Mixed triphasic and biphasic waveforms. Peak systolic velocity measures up to 138 cm/sec. Right popliteal artery: Right popliteal artery is widely patent. Minimal scattered plaque. No high-grade stenosis or increase in velocity. Peak systolic velocity measures 130 cm/sec. Right calf/foot arteries: The right posterior tibialis artery is patent. Waveforms appear somewhat low resistive and monophasic. Peak systolic velocity measures 26 cm/sec. Anterior tibialis and peroneal artery were not imaged. Right dorsalis pedis artery is patent. Waveforms are monophasic. Peak systolic velocity measures 65 cm/sec. Left external iliac artery: Left external iliac artery is widely patent. No high-grade stenosis or increase in velocity. Waveforms are biphasic. Peak systolic velocity measures 77 cm/sec. Left common femoral artery: Left common femoral artery is patent. No focal stenosis or increase in velocity. Peak systolic velocity measures 86 cm/sec. Waveforms are biphasic. Left superficial femoral artery: Left superficial femoral artery is patent. No focal high-grade stenosis or increase in velocity. Peak systolic velocity measures up to 121 cm/sec. Waveforms are biphasic. Left popliteal artery: Left popliteal artery is widely patent. No high-grade stenosis or increase in velocity. Peak systolic velocity measures up to 64 cm/sec. Waveforms are biphasic. Left calf/foot arteries: Left posterior tibialis artery is patent. No high-grade stenosis or increase in velocity. Peak systolic velocity measures up to 88 cm/sec. The left anterior tibialis and left peroneal artery were not imaged. Left dorsalis pedis artery is patent. Doppler bunny waveform pattern suggestive of adjacent stenosis not visualized. Peak systolic velocity measures 37 cm/sec. Soft tissues: Ankle-brachial index was not performed. Mild subcutaneous edema is present at the level of the right ankle. Mild subcutaneous edema is present at the level of the left ankle. US/[place] [id number] IMPRESSION: No focal high-grade stenosis or focal increase in velocity is identified within the arterial system within the right and left lower extremity. Lower extremity arteries are widely patent to the level of the knee bilaterally. Right and left posterior tibialis arteries are patent. Peroneal and anterior tibialis arteries were not imaged. Abnormal Doppler bunny waveform is present within the left dorsalis pedis artery suggestive of potential near stenosis not visualized. Follow-up CT angiogram with bilateral lower extremity runoff could be considered as clinically indicated.
== END 2025-05-11 14:58 | disposition home or self-care (01) ==
PROVIDERS: PCP Nurse Practitioner; Visit Provider Internal Medicine Cardiovascular Disease
DX: M79.661 Pain in right lower leg (principal); M79.662 Pain in left lower leg; R93.6 Abnormal findings on diagnostic imaging of limbs
CPT/HCPCS: 93925

== ENCOUNTER → 2025-06-12 12:12 | Outpatient (BNVA) | payer OTHER, SELFPAY | PROVIDERS: PCP Nurse Practitioner; Visit Provider Internal Medicine | DX: R91.8 Other nonspecific abnormal finding of lung field (principal); J44.89 Other specified chronic obstructive pulmonary disease; R59.0 Localized enlarged lymph nodes; J43.9 Emphysema, unspecified; F17.210 Nicotine dependence, cigarettes, uncomplicated; J44.9 Chronic obstructive pulmonary disease, unspecified | CPT/HCPCS: 99214; Q3014 ==